=== PATIENT | female | born 1950 | race Caucasian/White ===

== ENCOUNTER → 2016-09-20 | Outpatient (CLI) | payer MEDICARE, MEDICAID ==
--- NOTE | 2016-09-20 11:05 | WOMENS IMAGING REPORT ---
EXAM DESCRIPTION: BONE DENSITY HIP/SPINE COMPLETED DATE/TIME: 09/20/2016 9:54 am REASON FOR STUDY: ROUTINE SCREENING; Z12.31 DISORDER OF BONE M85.80 Z12.31 ENCNTR SCREEN MAMMOGRAM FOR MALIGNANT NEOPLASM OF [place] M85.80 OTH DISRD OF BONE DENSITY AND STRUCTURE, UNSPECIFIED M81.0 A GE-RELATED OSTEOPOROSIS W/O CURRENT PATHOLOGICAL FRAC COMPARISON: None. TECHNIQUE: Dual-Energy X-ray Absorptiometry (DEXA) of the AP Spine and Hip. LIMITATIONS: None. FINDINGS: LUMBAR SPINE: The bone mineral density (BMD) measured from L1-L4 in the AP projection correlates with a T-score of 0.8, which is normal as defined by the World Health Organization. HIP: The bone mineral density (BMD) measured in the left femoral neck correlates with a T-score of -1.1, w hich is mild osteopenia. As defined by the World Health Organization. IMPRESSION: 1. LUMBAR SPINE: Normal 2. HIP: Mild osteopenia. COMMENT: The World Health Organization defines low BMD as follows: T-score: Normal: Greater than -1.0 Osteopenia: Between -1.0 and -2.5 Osteoporosis: Less than -2.5 without fractures Established osteoporosis: Less than -2.5 with fractures In general, you may wish to consider: Diagnosis Treatment Follow-up DEXA Normal BMD Prevention 2-3 years Osteopenia Prevention/Therapy 1-2 years Osteoporosis Therapy Yearly TECHNICAL DOCUMENTATION: JOB ID: [id number] [employer]- All Rights Reserved
--- NOTE | 2016-09-21 09:15 | WOMENS IMAGING REPORT ---
EXAM DESCRIPTION: 3D SCREENING MAMMO BILAT COMPLETED DATE/TIME: 09/20/2016 9:54 am REASON FOR STUDY: ROUTINE SCREENING; Z12.31 Z12.31 ENCNTR SCREEN MAMMOGRAM FOR MALIGNANT NEOPLASM O F [place] M85.80 OTH DISRD OF BONE DENSITY AND STRUCTURE, UNSPECIFIED M81.0 AGE-RELATED OSTEOPOROSIS W /O CURRENT PATHOLOGICAL FRAC COMPARISON: Multiple since 2013 TECHNIQUE: Standard craniocaudal and mediolateral oblique views of each breast recorded using digita l acquisition and breast tomosynthesis. LIMITATIONS: None. FINDINGS: Findings present which are benign by mammographic criteria. No suspicious masses, calcifi cations or architectural distortion. Pertinent benign findings: Benign calcifications far lateral the right breast previously biopsied, re lated to fibroadenoma. Read with the assistance of CAD. .[facility] - R2 Cenova Version 1.3 .[facility] Imaging - R2 Cenova Version 1.3 .[facility] - R2 Cenova Version 2.4 .[facility] [place] Cenova Version 2.4 .[facility] - R2 Specification Writer Version 9.2 Benign mammographic findings may include one or more of the following: Smooth masses, popcorn/rim/co arse calcifications, asymmetries, post-procedure changes, and lesions with long-standing stability. IMPRESSION: BENIGN MAMMOGRAPHIC FINDINGS. BIRADS 2 BREAST DENSITY: a. The breasts are almost entirely fatty. BIRAD: 2 BENIGN FINDING(S) RECOMMENDATION: RECOMMENDATION: ROUTINE SCREENING Please continue yearly bilateral screening tomosynthesis COMMENT: The patient has been notified of the results by letter per SA requirements. Additional no tification policies are in place for contacting patient with suspicious or incomplete findings. Quality ID #[id number]: The [employer] recommends an annual screening mammogram for women aged 40 years or over. This facility utilizes a reminder system to ensure that all patients receive reminder letters, and/or direct phone calls for appointments. This includes reminders for routine scr eening mammograms, diagnostic mammograms, or other Breast Imaging Interventions when appropriate. Th is patient will be placed in the appropriate reminder system. The [employer] (ACR) has developed recommendations for screening MRI of the breast s in certain patient populations, to be used in conjunction with mammography. Breast MRI surveillanc e may be appropriate for women with more than 20% lifetime risk of developing breast cancer as deter mined by genetic testing, significant family history of the disease, or history of mantle radiation f or Hodgkins Disease. ACR Practice Guidelines 2008. DBT Technology DBT is a type of tomographic mammography. With conventional mammography, overlapping breast tissue ma y make lesions difficult to detect, even with good compression. DBT uses an x-ray tube that rotates a round the breast, taking images at different angles. These images are then combined to create thin sl ices of the breast that the radiologist can view as a 3D reconstruction. The [employer] unit can perform full-field digital mammograms (2D imaging); or DBT (3D imaging); or both, in a combination mode that quickly performs both the mammogram and the tomosynthesis scan while the breast is still compressed. PQRS 6045F: Fluoroscopic imaging is not utilized for breast tomosynthesis. TECHNICAL DOCUMENTATION: FINDING NUMBER: (1) ASSESSMENT: (1) JOB ID: [id number] [employer]- All Rights Reserved
== END ==
LOC: WI 10:04
PROVIDERS: ATTEND Family Medicine
DX: Z12.31 Encounter for screening mammogram for malignant neoplasm of breast (principal); M85.80 Other specified disorders of bone density and structure, unspecified site; M81.0 Age-related osteoporosis without current pathological fracture
CPT/HCPCS: 77063; 77080; G0202; 77067

== ENCOUNTER → 2016-09-22 | Outpatient (CLI) | payer MEDICARE, MEDICAID ==
--- NOTE | 2016-09-23 08:43 | XCELERA REPORT ---
[address] [address] Lower Extremity Arterial Evaluation Name: MAKSIM STANLEY Age: 66 yrs Gender: Female : 1950 Patient Status: Outpatient Patient Location: Study Date: 09/22/2016 01:04 PM Procedure: A color flow and duplex scan of the lower extremity arteries was performed on the left with velocity and waveform anaylsis. Reason For Study: PVD Ordering Physician: NATHANIEL ROMAN Performed By: Jose Gonzalez Measurements and Calculations Right Left CHIEF OPERATIONS OFFICER PSV 127.3 123.4 cm/sec Prox PFA PSV -55.4 -117.9 cm/sec Dist SFA PSV -84.5 -106.2 cm/sec Dist Pop A PSV 87.9 101.2 cm/sec Dist ROBBIE PSV 87.7 108.1 cm/sec Dist GENERAL MANAGER [employer]D PSV 82.5 47.1 cm/sec Parag Pedis PSV 86.0 91.1 cm/sec Right Side Arterial Evaluation Normal velocity and triphasic waveforms noted from the Common Femoral artery to the infrageniculate vessels. Biphasic in the Deep Femoral artery. 0-19% stenosis at the Deep Femoral artery. Ankle Brachial index is 1.14. PPG's normal except for mild dampening in the first digit. Left Side Arterial Evaluation Normal velocity and triphasic waveforms noted from the Common Femoral artery to the Anterior Tibial artery. Biphasic in the Posterior Tibial artery. 0-19% stenosis at the Posterior Tibial artery. Ankle Brachial index is 1.17. PPG's normal except for mild dampening in the first and second digits. Interpretation Summary Mild hemodynamically significant lesions in the bilateral lower extremities, on duplex imaging, at rest. : NATHANIEL ROMAN > Zaid Fong
== END ==
LOC: SP 12:03 → MERGE 13:00
PROVIDERS: ATTEND Podiatrist Foot Surgery
DX: I73.9 Peripheral vascular disease, unspecified (principal)
CPT/HCPCS: 93925

== ENCOUNTER 2016-11-13 15:34 | Emergency (ER) | payer MEDICARE, MEDICAID ==
[2016-11-13] MEDS ORDERED: ASPIRIN 81 MG TABLET, CHEWABLE PO ONE (15:58)
--- NOTE | 2016-11-13 16:02 | ER Document Report ---
ED Medical Screen (RME) - General Chief Complaint: Chest Pain Stated Complaint: CHEST PAIN Time Seen by Provider: 11/13/16 15:58 Mode of Arrival: Ambulatory Information source: Patient TRAVEL OUTSIDE OF THE [place] IN LAST 30 DAYS: No - HPI Onset: Other - 3 DAYS Onset/Duration: Intermittent Quality of pain: Cramping Severity: Moderate Associated Symptoms: Chest pain, Nausea. denies: Chills, Cough (productive), Cough (nonproductive), Dizzy/lightheaded, Fever, Shortness of breath, Sweating Exacerbated by: Denies Relieved by: Denies Similar symptoms previously: No Recently seen / treated by doctor: No - Related Data Smoking: Non-smoker Frequency of alcohol use: None Drug Abuse: None Allergies/Adverse Reactions: sulfamethoxazole [From Septra DS] Allergy (Unknown, Verified 11/13/16 15:51) trimethoprim [From Septra DS] Allergy (Unknown, Verified 11/13/16 15:51) codeine [Codeine] Allergy (Verified 11/13/16 15:51) Anxiety latex [Latex] Allergy (Verified 11/13/16 15:51) Past Medical History - General Information source: Patient - Social History Cigarette use (# per day): No Chew tobacco use (# tins/day): No Frequency of alcohol use: None Drug Abuse: None Lives with: Spouse/Significant other Family history: None - Past Medical History Cardiac Medical History: Reports: Hx Hypercholesterolemia, Hx Hypertension, Hx Heart Murmur Denies: Hx Coronary Artery Disease, Hx Heart Attack Pulmonary Medical History: Reports: Hx Asthma, Hx Bronchitis, Hx COPD, Hx Pneumonia Denies: Hx Respiratory Failure, Hx Sleep Apnea, Hx Tuberculosis Neurological Medical History: Denies: Hx Cerebrovascular Accident, Hx Seizures Endocrine Medical History: Reports: Hx Diabetes Mellitus Type 2 Renal/ Medical History: Denies: Hx Peritoneal Dialysis Musculoskeltal Medical History: Reports Hx Arthritis Psychiatric Medical History: Reports: Hx Depression Past Surgical History: Reports: Hx Adenoidectomy, Hx Gynecologic Surgery - D&Cx2 , Hx Orthopedic Surgery - bilat carpal tunnel, Hx Tonsillectomy - Immunizations Hx Diphtheria, Pertussis, Tetanus Vaccination: Yes Review of Systems - Review of Systems Constitutional: No symptoms reported EENT: No symptoms reported Cardiovascular: See HPI Respiratory: No symptoms reported Gastrointestinal: See HPI Genitourinary: No symptoms reported Female Genitourinary: No symptoms reported Musculoskeletal: Leg swelling Skin: No symptoms reported Neurological/Psychological: No symptoms reported Physical Exam - Vital signs Vitals: Temp Pulse Resp BP Pulse Ox 98 F 76 16 138/65 H 95 11/13/16 15:42 11/13/16 15:42 11/13/16 15:42 11/13/16 15:42 11/13/16 15:42 Interpretation: Normal. No: Hypertensive, Tachycardic, Tachypneic - General General appearance: Appears well, Alert In distress: None - HEENT Head: Normocephalic Eyes: Normal Conjunctiva: Normal Ears: Normal Nasal: Normal Mouth/Lips: Normal Mucous membranes: Normal - Respiratory Respiratory status: No respiratory distress Breath sounds: Normal - Cardiovascular Rhythm: Regular Heart sounds: Normal auscultation Murmur: No - Abdominal Inspection: Morbidly Obese - Extremities General upper extremity: Normal inspection General lower extremity: Normal inspection - Neurological Neuro grossly intact: Yes Cognition: Normal Orientation: AAOx4 - Psychological Associated symptoms: Normal affect, Normal mood - Skin Skin Temperature: Warm Skin Moisture: Dry Skin Color: Normal Skin Turgor: Elastic Course - Vital Signs Vital signs: Temp Pulse Resp BP Pulse Ox 98 F 76 16 138/65 H 95 11/13/16 15:42 11/13/16 15:42 11/13/16 15:42 11/13/16 15:42 11/13/16 15:42
[2016-11-13 16:10] LABS: ABSOLUTE BASOPHILS # (AUTO) 0.2 10^3/uL (0.0-0.2); ABSOLUTE EOSINOPHILS # (AUTO) 0.8 10^3/uL (0.0-0.6); ABSOLUTE LYMPHOCYTES (AUTO) 1.7 10^3/uL (0.5-4.7); ABSOLUTE MONOCYTES (AUTO) 0.6 10^3/uL (0.1-1.4); ABSOLUTE NEUT (AUTO) 9.6 10^3/uL (1.7-8.2); BASOPHILS % (AUTO) 1.2 % (0-2); EOSINOPHILS % (AUTO) 6.1 % (0-6); HEMATOCRIT 39.5 % (36.0-47.0); HEMOGLOBIN 12.9 g/dL (12.0-15.5); HGB HCT DIFFERENCE -0.8; LYMPHOCYTES % (AUTO) 12.9 % (13-45); MEAN CORPUSCULAR HEMOGLOBIN 27.1 pg (27.0-33.4); MEAN CORPUSCULAR HGB CONC 32.7 g/dL (32.0-36.0); MEAN CORPUSCULAR VOLUME 83 fl (80-97); RED BLOOD COUNT 4.76 10^6/uL (3.72-5.28); RED CELL DISTRIBUTION WIDTH 16.9 % (11.5-14.0); SEGMENTED NEUTROPHILS % (AUTO) 74.8 % (42-78); WHITE BLOOD COUNT 12.8 10^3/uL (4.0-10.5)
[2016-11-13 16:23] LABS: ALANINE AMINOTRANSFERASE 37 U/L (9-52); ALBUMIN 4.2 g/dL (3.5-5.0); ALKALINE PHOSPHATASE 70 U/L (38-126); ANION GAP 9 (5-19); ASPARTATE AMINO TRANSFERASE 18 U/L (14-36); BILIRUBIN,DIRECT 0.3 mg/dL (0.0-0.4); BILIRUBIN,TOTAL 0.8 mg/dL (0.2-1.3); BLOOD UREA NITROGEN 15 mg/dL (7-20); CALCIUM 9.7 mg/dL (8.4-10.2); CARBON DIOXIDE 31 mmol/L (22-30); CHLORIDE 100 mmol/L (98-107); CREATINE KINASE 159 U/L (30-135); CREATININE RESULT 0.93 mg/dL (0.52-1.25); GLUCOSE 126 mg/dL (75-110); POTASSIUM 5.1 mmol/L (3.6-5.0); SODIUM 140.4 mmol/L (137-145)
--- NOTE | 2016-11-13 16:26 | RADIOLOGY REPORT (SQ) ---
EXAM DESCRIPTION: CHEST SINGLE VIEW COMPLETED DATE/TIME: 11/13/2016 4:08 pm REASON FOR STUDY: CHEST PAIN COMPARISON: Two-view chest 04/28/2013, 10/01/2015 EXAM PARAMETERS: NUMBER OF VIEWS: One view. TECHNIQUE: Single frontal radiographic view of the chest acquired. RADIATION DOSE: NA LIMITATIONS: None. FINDINGS: LUNGS AND PLEURA: No opacities, masses or pneumothorax. No pleural effusion. MEDIASTINUM AND HILAR STRUCTURES: No masses. Contour normal. HEART AND VASCULAR STRUCTURES: Stable borderline cardiomegaly BONES: No acute findings. HARDWARE: None in the chest. OTHER: No other significant finding. IMPRESSION: No acute changes TECHNICAL DOCUMENTATION: JOB ID: [id number]
[2016-11-13 16:35] LABS: CREATINE KINASE MB 8.28 ng/mL (<4.55)
[2016-11-13 16:38] LABS: TROPONIN I < 0.012 ng/mL
--- NOTE | 2016-11-13 16:41 | ER Document Report ---
ED General - General Chief Complaint: Chest Pain Stated Complaint: CHEST PAIN Time Seen by Provider: 11/13/16 15:58 Mode of Arrival: Ambulatory Information source: Patient, Relative TRAVEL OUTSIDE OF THE [place] IN LAST 30 DAYS: No - HPI Notes: 66-year-old female presents emergency department complaining of chest discomfort. She reports she has had discomfort in the right center of her chest for approximately 6 days. Today she felt like it is shifted left slightly. She reports having increased shortness of breath when ambulatory. Her chest pain does not get worse when she is walking. She does have occasional episodes of nausea. She has no diaphoresis. She also denies any near syncopal type episodes. In addition to the chest discomfort, she reports she has discomfort in her legs. She has pain in her right dunham and discomfort in her left foot. She says this is been going on for a couple of months. She denies any swelling in her legs. She does not have a history of any blood clots. Patient does report that she she uses albuterol as well as Advair. She has not used any albuterol today. - Related Data Allergies/Adverse Reactions: sulfamethoxazole [From Septra DS] Allergy (Unknown, Verified 11/13/16 15:51) trimethoprim [From Septra DS] Allergy (Unknown, Verified 11/13/16 15:51) codeine [Codeine] Allergy (Verified 11/13/16 15:51) Anxiety latex [Latex] Allergy (Verified 11/13/16 15:51) Past Medical History - General Information source: Patient - Social History Smoking Status: Never Smoker Cigarette use (# per day): No Chew tobacco use (# tins/day): No Frequency of alcohol use: None Drug Abuse: None Lives with: Spouse/Significant other Family History: Reviewed & Not Pertinent, CAD - Past Medical History Cardiac Medical History: Reports: Hx Hypercholesterolemia, Hx Hypertension, Hx Heart Murmur Denies: Hx Coronary Artery Disease, Hx Heart Attack Pulmonary Medical History: Reports: Hx Asthma, Hx Bronchitis, Hx COPD, Hx Pneumonia Denies: Hx Respiratory Failure, Hx Sleep Apnea, Hx Tuberculosis Neurological Medical History: Denies: Hx Cerebrovascular Accident, Hx Seizures Endocrine Medical History: Reports: Hx Diabetes Mellitus Type 2 Renal/ Medical History: Denies: Hx Peritoneal Dialysis Musculoskeltal Medical History: Reports Hx Arthritis Psychiatric Medical History: Reports: Hx Depression Past Surgical History: Reports: Hx Adenoidectomy, Hx Gynecologic Surgery - D&Cx2 , Hx Orthopedic Surgery - bilat carpal tunnel, Hx Tonsillectomy - Immunizations Hx Diphtheria, Pertussis, Tetanus Vaccination: Yes Hx Pneumococcal Vaccination: 12/26/14 Review of Systems - Review of Systems Notes: REVIEW OF SYSTEMS: CONSTITUTIONAL : Denies fever, chills, or sweats. Denies recent illness. EENT: Denies eye, ear, throat, or mouth pain or symptoms. Denies nasal or sinus congestion or discharge. Denies throat, tongue, or mouth swelling or difficulty swallowing. CARDIOVASCULAR: Positive for chest pain. See HPI. Denies palpitations or racing or irregular heart beat. Denies ankle edema. RESPIRATORY: Patient with increased dyspnea on exertion, shortness of breath. See HPI. GASTROINTESTINAL: Denies abdominal pain or distention. Denies nausea, vomiting , or diarrhea. Denies blood in vomitus, stools, or per rectum. Denies black, tarry stools. Denies constipation. GENITOURINARY: Denies difficulty urinating, painful urination, burning, frequency, blood in urine, or discharge. MUSCULOSKELETAL: Patient denies swelling. She does report myalgias and arthralgias. See HPI SKIN: Denies rash, lesions or sores. HEMATOLOGIC : Since family member reports she bleeds fairly freely if she cuts herself. Patient takes an aspirin a day. LYMPHATIC: Denies swollen, enlarged glands. NEUROLOGICAL: Denies confusion or altered mental status. Denies passing out or loss of consciousness. Denies dizziness or lightheadedness. Denies headache. Denies weakness or paralysis or loss of use of either side. Denies problems with gait or speech. Denies sensory loss, numbness, or tingling. Denies seizures. PSYCHIATRIC: Denies anxiety or stress. Denies depression, suicidal ideation, or homicidal ideation. ALL OTHER SYSTEMS REVIEWED AND NEGATIVE. PHYSICAL EXAMINATION: GENERAL: Alert, pleasant, communicative. Moderately large body habitus. No acute distress. HEAD: Atraumatic, normocephalic. ENT: Nares patent, oropharynx clear without exudates. Moist mucous membranes. NECK: Normal range of motion, supple without lymphadenopathy LUNGS: Mild expiratory wheeze noted bilaterally. No respiratory distress. HEART: Regular rate and rhythm without murmurs. ABDOMEN: Soft, nontender, nondistended abdomen. No guarding, no rebound. No masses appreciated. Musculoskeletal: Normal range of motion, no pitting or edema. No cyanosis. Easily palpated pulses in both feet. NEUROLOGICAL: Cranial nerves grossly intact. Normal speech, normal gait. Normal sensory, motor exams PSYCH: Normal mood, normal affect. SKIN: Warm, Dry, no rashes or lesions noted. Physical Exam - Vital signs Vitals: Temp Pulse Resp BP Pulse Ox 98 F 76 16 138/65 H 95 11/13/16 15:42 11/13/16 15:42 11/13/16 15:42 11/13/16 15:42 11/13/16 15:42 Course - Re-evaluation Re-evalutation: 11/13/16 16:48 Pleasant 66-year-old female with multiple complaints. The primary reason for the visit today is the right-sided chest discomfort that she has been having with increased dyspnea on exertion. Her EKG does not show any acute changes. At 1538 she had a sinus rhythm at a rate of 81 with normal intervals. She has a small Q-wave in lead III which been present before. No ischemic changes. Initial blood tests look reasonable, including a negative troponin. Chest x- ray does not show any acute changes. I have added a TSH due to the patient being on thyroid replacement. On exam, the patient has mild bilateral wheezing. I suspect this may play a role in her mild dyspnea on exertion. We will treat her with albuterol via MDI with spacer. The patient wanted to avoid a nebulizer treatment, which I think is reasonable to avoid. Reassessment pending after MDI albuterol. 11/13/16 18:22 Patient appears to be improved following albuterol. Her wheezing has significantly decreased and her delayed expirations are improved. She is now sitting upright in a chair and appears well. Her blood tests overall appear reasonable. I discussed the results with her. I have asked her to follow-up with her primary physician on Tuesday or Tuesday. She agrees with this plan. - Vital Signs Vital signs: Temp Pulse Resp BP Pulse Ox 98 F 76 16 138/65 H 95 11/13/16 15:42 11/13/16 15:42 11/13/16 15:42 11/13/16 15:42 11/13/16 15:42 - Laboratory Result Diagrams: 11/13/16 16:00 11/13/16 16:00 Laboratory results interpreted by me: 11/13/16 11/13/16 11/13/16 16:00 16:00 16:00 WBC 12.8 H RDW 16.9 H Lymphocytes % 12.9 L Eosinophils % 6.1 H Absolute Neutrophils 9.6 H Absolute Eosinophils 0.8 H Potassium 5.1 H Carbon Dioxide 31 H Glucose 126 H Creatine Kinase 159 H CK-MB (CK-2) 8.28 H Discharge - Discharge Clinical Impression: COPD (chronic obstructive pulmonary disease) Qualifiers: COPD type: unspecified COPD Qualified Code(s): J44.9 - Chronic obstructive pulmonary disease, unspecified Chest pain Qualifiers: Ischemic chest pain type: unspecified angina pectoris type Condition: Good Disposition: HOME, SELF-CARE Instructions: Chest Pain of Unclear Cause ([facility]) Additional Instructions: Asthma You have been diagnosed as having asthma. This is a condition where there is episodic tightness in the bronchial tubes. Allergies, infections, and polluted or cold air may be contributing factors. Emergency treatment of a severe asthma attack may include adrenaline shots , or bronchodilator aerosol. You may feel lightheaded, have a decreased exercise tolerance and a rapid pulse for an hour or two. Rest and get plenty of fluids. Home treatment of asthma requires bronchodilator drugs. These can be administered by injection, inhalation, or by mouth. Antibiotics and corticosteroids may be required for some patients. You should avoid chemical fumes, dusts, pollens, and exercising in very cold or dry air. If you smoke, stop!! If you develop a fever, increased wheezing, chest pain, or severe shortness of breath, you should contact the doctor immediately You may use the albuterol as needed, with the spacer, as we discussed. Return to the emergency department if you have worsening chest pain or if you have weakness or if you have other urgent concerns. See your regular doctor on Tuesday or Tuesday for reevaluation and ongoing care. Referrals: GIAN BENITEZ MD [NO LOCAL MD] - Follow up in 3-5 days
[2016-11-13] MEDS ORDERED: ALBUTEROL SULFATE HFA (90 MCG/PUFF) 8 GM MDI (1 MDI/ER DISP) IH ONE (16:50)
[2016-11-13 19:35] VITALS: BP 135/73
--- NOTE | 2016-11-14 07:50 | EKG REPORT ---
SEVERITY:- BORDERLINE ECG - SINUS RHYTHM BORDERLINE R WAVE PROGRESSION, ANTERIOR LEADS BORDERLINE T ABNORMALITIES, ANTERIOR LEADS : Confirmed by: Rick Hill MD 14-Nov-2016 07:50:32
== END 2016-11-13 19:33 | disposition home or self-care (01) ==
LOC: ER 15:34
DX: J44.9 Chronic obstructive pulmonary disease, unspecified (principal); R07.89 Other chest pain
CPT/HCPCS: 93005; 99285; 36415; 82553; 82550; 84443; 85025; 80053; 84484; 71010; 93010; A9270; J3490

== ENCOUNTER → 2017-11-01 | Outpatient (CLI) | payer MEDICARE, MEDICAID ==
--- NOTE | 2017-11-01 11:16 | WOMENS IMAGING REPORT ---
EXAM DESCRIPTION: 3D SCREENING MAMMO BILAT COMPLETED DATE/TIME: 11/01/2017 9:20 am REASON FOR STUDY: ROUTINE BILATERAL SCREENING;Z12.31 Z12.31 ENCNTR SCREEN MAMMOGRAM FOR MALIGNANT N EOPLASM OF [place] COMPARISON: [id number] TECHNIQUE: Standard craniocaudal and mediolateral oblique views of each breast recorded using digita l acquisition and breast tomosynthesis. LIMITATIONS: None. FINDINGS: Findings present which are benign by mammographic criteria. No suspicious masses, calcifi cations or architectural distortion. Pertinent benign findings: Calcifications right. Read with the assistance of CAD. .[facility] - R2 Cenova Version 1.3 .[facility] Imaging - R2 Cenova Version 1.3 .[facility] - R2 Cenova Version 2.4 .[facility] [place] Cenova Version 2.4 .[facility] - R2 [employer] Associate Version 9.2 Benign mammographic findings may include one or more of the following: Smooth masses, popcorn/rim/co arse calcifications, asymmetries, post-procedure changes, and lesions with long-standing stability. IMPRESSION: BENIGN MAMMOGRAPHIC FINDINGS. BIRADS 2 BREAST DENSITY: b. There are scattered areas of fibroglandular density. BIRAD: 2 BENIGN FINDING(S) RECOMMENDATION: RECOMMENDATION: ROUTINE SCREENING COMMENT: The patient has been notified of the results by letter per SA requirements. Additional no tification policies are in place for contacting patient with suspicious or incomplete findings. Quality ID #[id number]: [employer] recommends an annual screening mammogram for women aged 40 years or over. This facility utilizes a reminder system to ensure that all patients receive reminder letters, and/or direct phone calls for appointments. This includes reminders for routine scr eening mammograms, diagnostic mammograms, or other Breast Imaging Interventions when appropriate. Th is patient will be placed in the appropriate reminder system. The [employer] (ACR) has developed recommendations for screening MRI of the breast s in certain patient populations, to be used in conjunction with mammography. Breast MRI surveillanc e may be appropriate for women with more than 20% lifetime risk of developing breast cancer as deter mined by genetic testing, significant family history of the disease, or history of mantle radiation f or Hodgkins Disease. ACR Practice Guidelines 2008. DBT Technology DBT is a type of tomographic mammography. With conventional mammography, overlapping breast tissue ma y make lesions difficult to detect, even with good compression. DBT uses an x-ray tube that rotates a round the breast, taking images at different angles. These images are then combined to create thin sl ices of the breast that the radiologist can view as a 3D reconstruction. The [employer] unit can perform full-field digital mammograms (2D imaging); or DBT (3D imaging); or both, in a combination mode that quickly performs both the mammogram and the tomosynthesis scan while the breast is still compressed. PQRS 6045F: Fluoroscopic imaging is not utilized for breast tomosynthesis. TECHNICAL DOCUMENTATION: FINDING NUMBER: (1) ASSESSMENT: (1) JOB ID: [id number] [employer]- All Rights Reserved Reading location - IP/workstation name: [email or web address]
== END ==
LOC: WI 08:54
PROVIDERS: ATTEND Family Medicine
DX: Z12.31 Encounter for screening mammogram for malignant neoplasm of breast (principal)
CPT/HCPCS: 77063; 77067

== ENCOUNTER 2018-03-06 14:44 | Emergency (ER) | payer MEDICARE, MEDICAID ==
[2018-03-06] MEDS ORDERED: NORMAL SALINE 1000 ML 1,000 ML IV ONE (15:20)
--- NOTE | 2018-03-06 15:24 | ER Document Report ---
ED Medical Screen (RME) - General Chief Complaint: Abdominal Pain Stated Complaint: ABDOMINAL PAIN Time Seen by Provider: 03/06/18 15:05 TRAVEL OUTSIDE OF THE [place] IN LAST 30 DAYS: No - HPI Notes: 03/06/18 15:24 Lower abdominal pains consistent with diverticulitis in the past recently finished antibiotics for UTI - Related Data Allergies/Adverse Reactions: sulfamethoxazole [From Septra DS] Allergy (Unknown, Verified 03/06/18 14:44) trimethoprim [From Septra DS] Allergy (Unknown, Verified 03/06/18 14:44) codeine [Codeine] Allergy (Verified 03/06/18 14:44) Anxiety latex [Latex] Allergy (Verified 03/06/18 14:44) Past Medical History - Social History Family history: None - Past Medical History Cardiac Medical History: Reports: Hx Hypercholesterolemia, Hx Hypertension, Hx Heart Murmur Denies: Hx Coronary Artery Disease, Hx Heart Attack Pulmonary Medical History: Reports: Hx Asthma, Hx Bronchitis, Hx COPD, Hx Pneumonia Denies: Hx Respiratory Failure, Hx Sleep Apnea, Hx Tuberculosis Neurological Medical History: Denies: Hx Cerebrovascular Accident, Hx Seizures Endocrine Medical History: Reports: Hx Diabetes Mellitus Type 2 Renal/ Medical History: Denies: Hx Peritoneal Dialysis GI Medical History: Denies: Hx Pancreatitis Musculoskeltal Medical History: Reports Hx Arthritis Psychiatric Medical History: Reports: Hx Depression Past Surgical History: Reports: Hx Adenoidectomy, Hx Gynecologic Surgery - D&Cx2 , Hx Orthopedic Surgery - bilat carpal tunnel, Hx Tonsillectomy - Immunizations Hx Diphtheria, Pertussis, Tetanus Vaccination: Yes Review of Systems - Review of Systems Gastrointestinal: Abdominal pain Physical Exam - Vital signs Vitals: Temp Pulse Resp BP Pulse Ox 98.4 F 77 18 153/68 H 97 03/06/18 14:47 03/06/18 14:47 03/06/18 14:47 03/06/18 14:47 03/06/18 14:47 - Respiratory Respiratory status: No respiratory distress Chest status: Nontender Breath sounds: Normal Chest palpation: Normal - Cardiovascular Rhythm: Regular Heart sounds: Normal auscultation Course - Vital Signs Vital signs: Temp Pulse Resp BP Pulse Ox 98.4 F 77 18 153/68 H 97 03/06/18 14:47 03/06/18 14:47 03/06/18 14:47 03/06/18 14:47 03/06/18 14:47 Doctor's Discharge - Discharge Referrals: GIAN BENITEZ MD [Primary Care Provider] - Follow up as needed
[2018-03-06 16:09] LABS: ABSOLUTE BASOPHILS # (AUTO) 0.1 10^3/uL (0.0-0.2); ABSOLUTE EOSINOPHILS # (AUTO) 0.7 10^3/uL (0.0-0.6); ABSOLUTE LYMPHOCYTES (AUTO) 1.5 10^3/uL (0.5-4.7); ABSOLUTE MONOCYTES (AUTO) 0.9 10^3/uL (0.1-1.4); ABSOLUTE NEUT (AUTO) 9.8 10^3/uL (1.7-8.2); BASOPHILS % (AUTO) 0.7 % (0-2); EOSINOPHILS % (AUTO) 5.1 % (0-6); HEMATOCRIT 40.3 % (36.0-47.0); HEMOGLOBIN 13.2 g/dL (12.0-15.5); LYMPHOCYTES % (AUTO) 11.6 % (13-45); MEAN CORPUSCULAR HEMOGLOBIN 27.6 pg (27.0-33.4); MEAN CORPUSCULAR HGB CONC 32.8 g/dL (32.0-36.0); MEAN CORPUSCULAR VOLUME 84 fl (80-97); MONOCYTES % (AUTO) 6.9 % (3-13); PLATELET COUNT 224 10^3/uL (150-450); RED BLOOD COUNT 4.78 10^6/uL (3.72-5.28); RED CELL DISTRIBUTION WIDTH 15.9 % (11.5-14.0); SEGMENTED NEUTROPHILS % (AUTO) 75.7 % (42-78); TOTAL CELLS COUNTED % (AUTO) 100 %; WHITE BLOOD COUNT 12.9 10^3/uL (4.0-10.5)
[2018-03-06 16:12] LABS: APPEARANCE,URINE CLEAR; BILIRUBIN,URINE NEGATIVE (NEGATIVE); COLOR,URINE YELLOW; GLUCOSE, URINE NEGATIVE (NEGATIVE); KETONES,URINE NEGATIVE (NEGATIVE); LEUKOCYTE ESTERASE,URINE TRACE (NEGATIVE); NITRITE,URINE NEGATIVE (NEGATIVE); PROTEIN,URINE NEGATIVE (NEGATIVE); URINE SPECIFIC GRAVITY 1.009; UROBILINOGEN,URINE NEGATIVE mg/dL (<2.0)
--- NOTE | 2018-03-06 16:15 | ER Document Report ---
ED General - General Mode of Arrival: Ambulatory Information source: Patient TRAVEL OUTSIDE OF THE [place] IN LAST 30 DAYS: No <NERISSA NICKERSON - Last Filed: 03/06/18 16:44> <JEFF CEBALLOS - Last Filed: 03/06/18 18:01> - General Chief Complaint: Abdominal Pain Stated Complaint: ABDOMINAL PAIN Time Seen by Provider: 03/06/18 15:05 Notes: Patient is a 57-year-old female with a history of diverticulitis presents emergency department complaining of lower abdominal pain onset 2 weeks ago worsening today. Patient states that 2 weeks ago she developed pressure in her lower abdomen and proceeded to present to the emergency department. She states she was diagnosed with a UTI and subsequently prescribed Cipro. She states that Cipro resolved her symptoms although, after completing the medication her symptoms returned shortly after. She also complains of subjective fevers, nausea and frequent urination. Patient's PCP is Dr. Benitez. (NERISSA NICKERSON) - Related Data Allergies/Adverse Reactions: sulfamethoxazole [From Septra DS] Allergy (Unknown, Verified 03/06/18 14:44) trimethoprim [From Septra DS] Allergy (Unknown, Verified 03/06/18 14:44) codeine [Codeine] Allergy (Verified 03/06/18 14:44) Anxiety latex [Latex] Allergy (Verified 03/06/18 14:44) Past Medical History - General Information source: Patient - Social History Smoking Status: Former Smoker - quit 20 years ago as of 2018 Cigarette use (# per day): No Chew tobacco use (# tins/day): No Family History: CAD Patient has suicidal ideation: No Patient has homicidal ideation: No - Past Medical History Cardiac Medical History: Reports: Hx Hypercholesterolemia, Hx Hypertension, Hx Heart Murmur Pulmonary Medical History: Reports: Hx Asthma, Hx Bronchitis, Hx COPD, Hx Pneumonia Endocrine Medical History: Reports: Hx Diabetes Mellitus Type 2 Musculoskeletal Medical History: Reports Hx Arthritis Psychiatric Medical History: Reports: Hx Depression Past Surgical History: Reports: Hx Adenoidectomy, Hx Gynecologic Surgery - D&Cx2 , Hx Orthopedic Surgery - bilat carpal tunnel, Hx Tonsillectomy - Immunizations Hx Diphtheria, Pertussis, Tetanus Vaccination: Yes Hx Pneumococcal Vaccination: 12/26/14 <NERISSA NICKERSON - Last Filed: 03/06/18 16:44> Review of Systems - Review of Systems Constitutional: See HPI, Fever - subjective EENT: No symptoms reported Cardiovascular: No symptoms reported Respiratory: No symptoms reported Gastrointestinal: See HPI, Abdominal pain, Nausea Genitourinary: See HPI, Frequency Female Genitourinary: No symptoms reported Musculoskeletal: No symptoms reported Skin: No symptoms reported Hematologic/Lymphatic: No symptoms reported Neurological/Psychological: No symptoms reported -: Yes All other systems reviewed and negative <LIYAJACKELYNSONIA - Last Filed: 03/06/18 16:44> Physical Exam <LIYA,TAMSONIA - Last Filed: 03/06/18 16:44> <JEFF CEBALLOS - Last Filed: 03/06/18 18:01> - Vital signs Vitals: Temp Pulse Resp BP Pulse Ox 98.4 F 77 18 153/68 H 97 03/06/18 14:47 03/06/18 14:47 03/06/18 14:47 03/06/18 14:47 03/06/18 14:47 - Notes Notes: GENERAL: Alert, interacts well. No acute distress. HEAD: Normocephalic, atraumatic. EYES: Pupils equal, round, and reactive to light. Extraocular movements intact. ENT: Oral mucosa moist, tongue midline. NECK: Full range of motion. Supple. Trachea midline. LUNGS: Clear to auscultation bilaterally, no wheezes, rales, or rhonchi. No respiratory distress. HEART: Regular rate and rhythm. No murmurs, gallops, or rubs. ABDOMEN: Soft, morbidly obese, tender to palpation across the lower abdomen, more so to the pelvic region. Non-distended. Bowel sounds present in all 4 quadrants. EXTREMITIES: Moves all 4 extremities spontaneously. NEUROLOGICAL: Alert and oriented x3. Normal speech. PSYCH: Normal affect, normal mood. SKIN: Warm, dry, normal turgor. No rashes or lesions noted. (LIYAJACKELYNSONIA) Course - Laboratory Result Diagrams: 03/06/18 15:46 03/06/18 15:46 <LIYAJACKELYNSONIA - Last Filed: 03/06/18 16:44> - Laboratory Result Diagrams: 03/06/18 15:46 03/06/18 15:46 - Diagnostic Test Radiology reviewed: Image reviewed, Reports reviewed - CT scan shows sigmoid diverticulitis without abscess or perforation. <JEFF CEBALLOS - Last Filed: 03/06/18 18:01> - Vital Signs Vital signs: Temp Pulse Resp BP Pulse Ox 98.4 F 77 18 153/68 H 97 03/06/18 14:47 03/06/18 14:47 03/06/18 14:47 03/06/18 14:47 03/06/18 14:47 - Laboratory Laboratory results interpreted by me: 03/06/18 03/06/18 03/06/18 15:46 15:46 15:48 WBC 12.9 H RDW 15.9 H Lymphocytes % 11.6 L Absolute Neutrophils 9.8 H Absolute Eosinophils 0.7 H Glucose 146 H Ur Leukocyte Esterase TRACE H Urine Ascorbic Acid 40 H Discharge <NERISSA NICKERSON - Last Filed: 03/06/18 16:44> <JEFF CEBALLOS - Last Filed: 03/06/18 18:01> - Discharge Clinical Impression: Diverticulitis of sigmoid colon Condition: Stable Disposition: HOME, SELF-CARE Additional Instructions: Diverticulitis: You have been diagnosed as having diverticulitis. This is an inflammation of a small pouch attached to the colon, called a diverticulum. Many of these small pouches can form on the colon as you get older. They are often caused by constipation. When inflamed or infected, symptoms arise -- usually abdominal pain, constipation or diarrhea, fever, and blood in the stool. Severe diverticulitis may require hospitalization. More mild cases are usually treated with antibiotics and clear liquid diet. As you improve, a diet low in residue (one which forms little stool) is prescribed. When you are better, you should eat a high-fiber diet. Stool softeners ( like Metamucil) are usually recommended. Call the doctor or go to the hospital if there is increasing pain, vomiting , high fever, large amounts of blood passed, or if bowel movements cease. Take the medications as prescribed. Stay on clear liquids for the next 1-2 days. Continue your regular pain management medications. Add Ibuprofen 800 mg every 8 hours for inflammation pain as needed. Follow-up with your doctor this week for recheck if not improving. RETURN TO THE EMERGENCY ROOM IF ANY NEW OR WORSENING SYMPTOMS. Prescriptions: Ciprofloxacin HCl [Cipro 750 mg Tablet] 750 mg PO BID #14 tablet Metronidazole [Flagyl 500 mg Tablet] 500 mg PO QID #28 tablet Referrals: GIAN BENITEZ MD [Primary Care Provider] - Follow up in 3-5 days Zane Attestation: 03/06/18 17:34 I personally performed the services described in the documentation, reviewed and edited the documentation which was dictated to the scribe in my presence, and it accurately records my words and actions. (JEFF CEBALLOS) Scribe Documentation - Scribe Written by Zane:: Zane Perdomo, 03/06/2018 16:20 acting as scribe for :: Clement <NERISSA NICKERSON - Last Filed: 03/06/18 16:44>
[2018-03-06 16:29] LABS: ALANINE AMINOTRANSFERASE 28 U/L (9-52); ALBUMIN 4.2 g/dL (3.5-5.0); ALKALINE PHOSPHATASE 68 U/L (38-126); ANION GAP 13 (5-19); ASPARTATE AMINO TRANSFERASE 24 U/L (14-36); BILIRUBIN,DIRECT 0.2 mg/dL (0.0-0.4); BILIRUBIN,TOTAL 0.9 mg/dL (0.2-1.3); BLOOD UREA NITROGEN 17 mg/dL (7-20); CALCIUM 9.8 mg/dL (8.4-10.2); CARBON DIOXIDE 27 mmol/L (22-30); CHLORIDE 101 mmol/L (98-107); GLUCOSE 146 mg/dL (75-110); LIPASE 89.2 U/L (23-300); POTASSIUM 4.9 mmol/L (3.6-5.0); SODIUM 141.3 mmol/L (137-145); TOTAL PROTEIN 6.9 g/dL (6.3-8.2)
--- NOTE | 2018-03-06 17:25 | RADIOLOGY REPORT (SQ) ---
EXAM DESCRIPTION: CT ABD/PELVIS WITH IV ONLY COMPLETED DATE/TIME: 03/06/2018 5:12 pm REASON FOR STUDY: llq pain hx of diverticular dz COMPARISON: 02/16/2016 TECHNIQUE: CT scan of the abdomen and pelvis performed using helical scanning technique with dynamic intravenous contrast injection. No oral contrast. Images reviewed with lung, soft tissue, and bone windows. Reconstructed coronal and sagittal MPR images reviewed. Delayed images for evaluation of the urinary system also acquired. All images stored on PACS. All CT scanners at this facility use dose modulation, iterative reconstruction, and/or weight based d osing when appropriate to reduce radiation dose to as low as reasonably achievable (ALARA). [facility]: Dose Right [facility]: CareDose [facility]: Dose Right [facility]: Teradose 4D [facility]: GuideWall CONTRAST TYPE AND DOSE: 100 cc Omnipaque 350- low osmolar. RENAL FUNCTION: GFR > 60. RADIATION DOSE: CT Rad equipment meets quality standard of care and radiation dose reduction techniq ues were employed. CTDIvol: 21.1 mGy. DLP: 2270 mGy-cm.. LIMITATIONS: Body habitus. FINDINGS: LOWER CHEST: Nothing acute. LIVER: Normal size. No masses. No dilated ducts. SPLEEN: Normal size. No focal lesions. PANCREAS: No masses. No significant calcifications. No adjacent inflammation or peripancreatic fluid collections. Pancreatic duct not dilated. GALLBLADDER: No identified stones by CT criteria. No inflammatory changes to suggest cholecystitis. ADRENAL GLANDS: Stable bilateral adrenal nodules. RIGHT KIDNEY AND URETER: No solid masses. No significant calcifications. No hydronephrosis or hyd roureter. LEFT KIDNEY AND URETER: No solid masses. No significant calcifications. No hydronephrosis or hydr oureter. AORTA AND VESSELS: No aneurysm. RETROPERITONEUM: No retroperitoneal adenopathy, hemorrhage or masses. BOWEL AND PERITONEAL CAVITY: Mesenteric inflammation segment of sigmoid colon containing diverticula. No free air or ascites. APPENDIX: Not visualized. PELVIS: Calcified uterine fibroid. No pelvic adenopathy. ABDOMINAL WALL: No masses. No hernias. BONES: Nothing acute. OTHER: No other significant finding. IMPRESSION: Sigmoid diverticulitis. TECHNICAL DOCUMENTATION: JOB ID: [id number] Quality ID # [id number]: Final reports with documentation of one or more dose reduction techniques (e.g., Au tomated exposure control, adjustment of the mA and/or kV according to patient size, use of iterative reconstruction technique) 2010 [employer]- All Rights Reserved Reading location - IP/workstation name: [email or web address]
[2018-03-06] MEDS ORDERED: METRONIDAZOLE 500 MG TABLET PO ONE (17:42)
[2018-03-06] MEDS ORDERED: CIPROFLOXACIN HCL 750 MG TABLET PO ONE (17:42)
[2018-03-06 18:06] VITALS: BP 147/98
== END 2018-03-06 18:06 | disposition home or self-care (01) ==
LOC: ER 14:44
DX: K57.92 Diverticulitis of intestine, part unspecified, without perforation or abscess without bleeding (principal); R10.9 Unspecified abdominal pain; R50.9 Fever, unspecified; R11.0 Nausea; R35.0 Frequency of micturition; E78.00 Pure hypercholesterolemia, unspecified; I10 Essential (primary) hypertension; E11.9 Type 2 diabetes mellitus without complications; Z88.6 Allergy status to analgesic agent; Z91.040 Latex allergy status
CPT/HCPCS: 99284; 96360; 96361; 36415; 83690; 85025; 80053; 81001; 74177; A9270 ×2; J7030; J3490

== ENCOUNTER → 2018-09-21 | Outpatient (CLI) | payer MEDICARE, MEDICAID ==
--- NOTE | 2018-09-21 13:07 | WOMENS IMAGING REPORT ---
EXAM DESCRIPTION: BONE DENSITY HIP/SPINE COMPLETED DATE/TIME: 09/21/2018 10:18 am REASON FOR STUDY: M81.0 AGE-RELATED OSTEOPOROSIS WITHOUT CURRENT PATHOLOGICAL FRACTURE M81.0 AGE-RE LATED OSTEOPOROSIS W/O CURRENT PATHOLOGICAL FRAC COMPARISON: 09/20/2016 TECHNIQUE: Dual-Energy X-ray Absorptiometry (DEXA) of the AP Spine and Hip. LIMITATIONS: None. FINDINGS: LUMBAR SPINE: The bone mineral density (BMD) measured from L1-L4 in the AP projection correlates with a T-score of 0.0, which is normal as defined by the World Health Organization. HIP: The bone mineral density (BMD) measured in the left hip correlates with a T-score of -0.2 in the femo ral neck, which is normal as defined by the World Health Organization. IMPRESSION: 1. LUMBAR SPINE: Normal 2. HIP: Normal COMMENT: The World Health Organization defines low BMD as follows: T-score: Normal: Greater than -1.0 Osteopenia: Between -1.0 and -2.5 Osteoporosis: Less than -2.5 without fractures Established osteoporosis: Less than -2.5 with fractures In general, you may wish to consider: Diagnosis Treatment Follow-up DEXA Normal BMD Prevention 2-3 years Osteopenia Prevention/Therapy 1-2 years Osteoporosis Therapy Yearly TECHNICAL DOCUMENTATION: JOB ID: [id number] [employer]- All Rights Reserved Reading location - IP/workstation name: [email or web address]
== END ==
LOC: WI 09:57
PROVIDERS: ATTEND Internal Medicine Hematology & Oncology
DX: M81.0 Age-related osteoporosis without current pathological fracture (principal)
CPT/HCPCS: 77080

== ENCOUNTER 2019-08-10 13:17 | Observation (INO) | payer MEDICAID, MEDICARE ==
--- NOTE | 2019-08-10 13:59 | ER Document Report ---
ED Medical Screen (RME) - General Chief Complaint: Chest Pain Stated Complaint: CHEST PAIN Time Seen by Provider: 08/10/19 13:54 Primary Care Provider: KHADRA CHOPRA MD [Primary Care Provider] - Follow up as needed Mode of Arrival: Ambulatory Information source: Patient Notes: 69-year-old female patient presents emergency department chief complaint of chest pain. Patient reports midsternal chest pain woke her up this morning from a sleep. She states that it felt like indigestion so she took Tums. Patient reports the Tums did not help her pain. She states the pain has been intermittent but has worsened through the day. She reports it radiates up into her throat area. She denies any nausea, diaphoresis or shortness of breath. Patient alert, oriented, no acute distress noted. Heart sounds S1-S2 present, normal rate, normal rhythm I have greeted and performed a rapid initial assessment of this patient. A comprehensive ED assessment and evaluation of the patient, analysis of test results and completion of the medical decision making process will be conducted by additional ED providers. I have specifically instructed the patient or family members with the patient to immediately return to any nursing staff should anything change in the patient's condition or with their chief complaint. TRAVEL OUTSIDE OF THE [place] IN LAST 30 DAYS: No - Related Data Allergies/Adverse Reactions: sulfamethoxazole [From Septra DS] Allergy (Unknown, Verified 07/24/18 09:41) trimethoprim [From Septra DS] Allergy (Unknown, Verified 07/24/18 09:41) codeine [Codeine] Allergy (Verified 07/24/18 09:41) Anxiety latex [Latex] Allergy (Verified 07/24/18 09:41) Past Medical History - Social History Family history: None - Past Medical History Cardiac Medical History: Reports: Hx Hypercholesterolemia, Hx Hypertension, Hx Heart Murmur Denies: Hx Coronary Artery Disease, Hx Heart Attack Pulmonary Medical History: Reports: Hx Asthma, Hx Bronchitis, Hx COPD, Hx Pneumonia Denies: Hx Respiratory Failure, Hx Sleep Apnea, Hx Tuberculosis Neurological Medical History: Denies: Hx Cerebrovascular Accident, Hx Seizures Endocrine Medical History: Reports: Hx Diabetes Mellitus Type 2 Renal/ Medical History: Denies: Hx Peritoneal Dialysis GI Medical History: Denies: Hx Pancreatitis Musculoskeltal Medical History: Reports Hx Arthritis, Denies Hx Systemic Lupus Erythematosus Psychiatric Medical History: Reports: Hx Depression Past Surgical History: Reports: Hx Adenoidectomy, Hx Gynecologic Surgery - D&Cx2, Hx Orthopedic Surgery - bilat carpal tunnel, Hx Tonsillectomy - Immunizations Hx Diphtheria, Pertussis, Tetanus Vaccination: Yes Physical Exam - Vital signs Vitals: Temp Pulse BP Pulse Ox 98.6 F 77 135/66 H 93 08/10/19 13:25 08/10/19 13:25 08/10/19 13:25 08/10/19 13:25 Course - Vital Signs Vital signs: Temp Pulse Resp BP Pulse Ox 98.6 F 77 135/66 H 93 08/10/19 13:25 08/10/19 13:25 08/10/19 13:25 08/10/19 13:25 Doctor's Discharge - Discharge Referrals: KHADRA CHOPRA MD [Primary Care Provider] - Follow up as needed
[2019-08-10] MEDS ORDERED: ASPIRIN 81 MG TABLET, CHEWABLE PO ONE (14:22)
--- NOTE | 2019-08-10 14:22 | ER Document Report ---
ED Cardiac - General Chief Complaint: Chest Pain Stated Complaint: CHEST PAIN Time Seen by Provider: 08/10/19 13:54 Mode of Arrival: Ambulatory Information source: Patient Notes: 69-year-old female past medical history significant for asthma, COPD, diabetes, hypertension, hyperlipidemia presents to the emergency room with chest pain that woke her up around 9 AM this morning. She describes it as midsternal pressure. Is intermittent. States she took Tums without relief. Takes 1 baby aspirin a day. Did not take any additional baby aspirin. Denies nausea, vomiting, diaphoresis, nothing makes it worse, nothing makes it better. Negative stress test 5 years ago. Does not see a insurance claim auditor. TRAVEL OUTSIDE OF THE [place] IN LAST 30 DAYS: No - Related Data Allergies/Adverse Reactions: sulfamethoxazole [From Septra DS] Allergy (Unknown, Verified 07/24/18 09:41) trimethoprim [From Septra DS] Allergy (Unknown, Verified 07/24/18 09:41) codeine [Codeine] Allergy (Verified 07/24/18 09:41) Anxiety latex [Latex] Allergy (Verified 07/24/18 09:41) Past Medical History - General Information source: Patient - Social History Smoking Status: Former Smoker Frequency of alcohol use: None Lives with: Family Family History: CAD, DM, Hyperlipidemia, Hypertension Patient has homicidal ideation: No - Past Medical History Cardiac Medical History: Reports: Hx Hypercholesterolemia, Hx Hypertension, Hx Heart Murmur Denies: Hx Coronary Artery Disease, Hx Heart Attack Pulmonary Medical History: Reports: Hx Asthma, Hx Bronchitis, Hx COPD, Hx Pneumonia Denies: Hx Respiratory Failure, Hx Sleep Apnea, Hx Tuberculosis Neurological Medical History: Denies: Hx Cerebrovascular Accident, Hx Seizures Endocrine Medical History: Reports: Hx Diabetes Mellitus Type 2 Renal/ Medical History: Denies: Hx Peritoneal Dialysis GI Medical History: Denies: Hx Pancreatitis Musculoskeletal Medical History: Reports Hx Arthritis, Denies Hx Systemic Lupus Erythematosus Psychiatric Medical History: Reports: Hx Depression Past Surgical History: Reports: Hx Adenoidectomy, Hx Gynecologic Surgery - D&Cx2, Hx Orthopedic Surgery - bilat carpal tunnel, Hx Tonsillectomy - Immunizations Hx Diphtheria, Pertussis, Tetanus Vaccination: Yes Hx Pneumococcal Vaccination: 12/26/14 Review of Systems - Review of Systems Constitutional: No symptoms reported EENT: No symptoms reported Cardiovascular: Chest pain Respiratory: No symptoms reported. denies: Cough, Short of breath, Wheezing Gastrointestinal: denies: Nausea, Vomiting Musculoskeletal: No symptoms reported Skin: No symptoms reported Neurological/Psychological: No symptoms reported -: Yes All other systems reviewed and negative Physical Exam - Vital signs Vitals: Temp Pulse BP Pulse Ox 98.6 F 77 135/66 H 93 08/10/19 13:25 08/10/19 13:25 08/10/19 13:25 08/10/19 13:25 - General General appearance: Appears well, Alert In distress: Mild - HEENT Head: Normocephalic, Atraumatic Eyes: Normal Pupils: PERRL - Respiratory Respiratory status: No respiratory distress Chest status: Nontender Breath sounds: Normal Chest palpation: Normal - Cardiovascular Rhythm: Regular Heart sounds: Normal auscultation Murmur: No - Back Back: Normal, Nontender. No: CVA tenderness - Neurological Neuro grossly intact: Yes Cognition: Normal Orientation: AAOx4 Kiarra Coma Scale Eye Opening: Spontaneous [place] Coma Scale Verbal: Oriented [place] Coma Scale Motor: Obeys Commands Kiarra Coma Scale Total: 15 Speech: Normal Motor strength normal: LUE, RUE, LLE, RLE Sensory: Normal - Skin Skin Temperature: Warm Skin Moisture: Dry Skin Color: Normal Course - Re-evaluation Re-evalutation: 08/10/19 14:26 Heart score = 5 per heart pathway scale 08/10/19 16:51 Patient is resting comfortably no acute distress at this time. Reviewed all test results with patient. Aware of need for admission. Patient is agreeable to admission. - Vital Signs Vital signs: Temp Pulse Resp BP Pulse Ox 98.8 F 79 16 121/46 L 98 08/10/19 19:49 08/10/19 19:49 08/10/19 19:49 08/10/19 19:49 08/10/19 18:01 - Laboratory Result Diagrams: 08/10/19 14:33 08/10/19 14:33 Laboratory results interpreted by me: 08/10/19 08/10/19 08/10/19 14:33 14:33 14:33 WBC 12.3 H RDW 16.0 H Eos % (Auto) 8.0 H Absolute Neuts (auto) 8.9 H Absolute Eos (auto) 1.0 H Potassium 5.1 H BUN 38 H Creatinine 1.92 H Est GFR ( Amer) 31 L Est GFR (MDRD) Non-Af 26 L Glucose 119 H Calcium 10.5 H AST 37 H Leukocyte Esterase Rfl TRACE H Urine Ascorbic Acid 40 H - Diagnostic Test Radiology reviewed: Reports reviewed - EKG Interpretation by Me Additional EKG results interpreted by me: 08/10/19 14:25 EKG interpreted by ER physician Dr. Vaughan 08/10/19 14:26 - Consults Dr Head Time consulted: 17:32 Reason for consultation: 08/10/19 17:32 Admission for chest pain, acute kidney injury Consulted provider: will come to ER Discharge - Discharge Clinical Impression: Acute kidney injury Chest pain Qualifiers: Chest pain type: other chest pain Qualified Code(s): R07.89 - Other chest pain Disposition: ADMITTED OBSERVATION Admitting Provider: Sonido (Hospitalist) Unit Admitted: Telemetry
--- NOTE | 2019-08-10 14:40 | RADIOLOGY REPORT (SQ) ---
EXAM DESCRIPTION: CHEST SINGLE VIEW IMAGES COMPLETED DATE/TIME: 08/10/2019 2:23 pm REASON FOR STUDY: chest pain COMPARISON: 11/13/2016 EXAM PARAMETERS: NUMBER OF VIEWS: One view. TECHNIQUE: Single frontal radiographic view of the chest acquired. RADIATION DOSE: NA LIMITATIONS: None. FINDINGS: LUNGS AND PLEURA: No opacities, masses or pneumothorax. No pleural effusion. MEDIASTINUM AND HILAR STRUCTURES: Stable in appearance with fullness along the right mediastinal bord er. HEART AND VASCULAR STRUCTURES: Heart normal in size. Normal vasculature. BONES: No acute findings. HARDWARE: None in the chest. OTHER: No other significant finding. IMPRESSION: No interval change in the chest. TECHNICAL DOCUMENTATION: JOB ID: [id number] 2010 [employer]- All Rights Reserved Reading location - IP/workstation name: [email or web address]
[2019-08-10 15:10] LABS: ABSOLUTE BASOPHILS # (AUTO) 0.1 10^3/uL (0.0-0.2); ABSOLUTE LYMPHOCYTES (AUTO) 1.6 10^3/uL (0.5-4.7); ABSOLUTE MONOCYTES (AUTO) 0.7 10^3/uL (0.1-1.4); ABSOLUTE NEUT (AUTO) 8.9 10^3/uL (1.7-8.2); HEMATOCRIT 37.4 % (36.0-47.0); HEMOGLOBIN 12.3 g/dL (12.0-15.5); LYMPHOCYTES % (AUTO) 13.1 % (13-45); MEAN CORPUSCULAR HEMOGLOBIN 27.8 pg (27.0-33.4); MEAN CORPUSCULAR HGB CONC 32.9 g/dL (32.0-36.0); MEAN CORPUSCULAR VOLUME 85 fl (80-97); MONOCYTES % (AUTO) 5.5 % (3-13); PLATELET COUNT 238 10^3/uL (150-450); RED BLOOD COUNT 4.43 10^6/uL (3.72-5.28); SEGMENTED NEUTROPHILS % (AUTO) 72.4 % (42-78); TOTAL CELLS COUNTED % (AUTO) 100 %; WHITE BLOOD COUNT 12.3 10^3/uL (4.0-10.5)
[2019-08-10 15:27] LABS: ALBUMIN 4.6 g/dL (3.5-5.0); ALKALINE PHOSPHATASE 41 U/L (38-126); ANION GAP 10 (5-19); ASPARTATE AMINO TRANSFERASE 37 U/L (14-36); BILIRUBIN,DIRECT 0.1 mg/dL (0.0-0.4); BILIRUBIN,TOTAL 0.5 mg/dL (0.2-1.3); BLOOD UREA NITROGEN 38 mg/dL (7-20); CALCIUM 10.5 mg/dL (8.4-10.2); CARBON DIOXIDE 30 mmol/L (22-30); CHLORIDE 99 mmol/L (98-107); GLUCOSE 119 mg/dL (75-110); POTASSIUM 5.1 mmol/L (3.6-5.0); TOTAL PROTEIN 7.3 g/dL (6.3-8.2)
[2019-08-10] MEDS ORDERED: IPRATROPIUM/ALBUTEROL 0.5-2.5 MG/3 ML AMPUL NEB PRN (17:46)
[2019-08-10] MEDS ORDERED: OXYCODONE-ACETAMINOPHEN 5-325 MG TABLET PO PRN (17:46)
[2019-08-10] MEDS ORDERED: ACETAMINOPHEN 325 MG TABLET PO PRN (17:46)
[2019-08-10] MEDS ORDERED: TEMAZEPAM 7.5 MG CAPSULE PO PRN (17:46)
[2019-08-10] MEDS ORDERED: NORMAL SALINE 1000 ML 1,000 ML IV PRN (17:46)
[2019-08-10] MEDS ORDERED: ONDANSETRON 4 MG TAB.RAPDIS PO PRN (17:46)
[2019-08-10] MEDS ORDERED: DEXTROSE 50%-WATER 25 GM/50 ML DISP.SYRIN IV PRN ×2 (17:52)
[2019-08-10] MEDS ORDERED: DEXTROSE 40% GEL 15 GM TUBE PO PRN ×2 (17:52)
[2019-08-10] MEDS ORDERED: GLUCAGON,HUMAN RECOMB 1 MG INJ IM PRN (17:52)
--- NOTE | 2019-08-10 18:02 | PDOC H&P ---
History of Present Illness Admission Date/PCP: GIAN BENITEZ MD Patient complains of: Midsternal chest pain with no associated nausea vomiting since 9 AM this morning History of Present Illness: MAKSIM STANLEY is a 69 year old female Patient presents emergency room with complaints of chest pain which started around 9 AM this morning. She denies any prior episodes of chest pain. Chest pain is felt to be mid start all are intermittent. She thought it was reflux so she took some Tums with no relief. She denies any prior history of coronary artery disease or episodes of chest pain. There is no nausea vomiting diaphoresis dizziness or any other pertinent symptoms. She is currently chest pain-free at the time of my exam for text Past Medical History Cardiac Medical History: Reports: Hyperlipidema, Hypertension, Heart Murmur Denies: Coronary Artery Disease, Myocardial Infarction Pulmonary Medical History: Reports: Asthma, Bronchitis, Chronic Obstructive Pulmonary Disease (COPD), Pneumonia Denies: Respiratory Failure, Sleep Apnea, Tuberculosis Neurological Medical History: Denies: Seizures Endocrine Medical History: Reports: Diabetes Mellitus Type 2 Musculoskeltal Medical History: Reports: Arthritis Psychiatric Medical History: Reports: Depression Hematology: Reports: Anemia Denies: Hemophilia, Sickle Cell Disease Past Surgical History Past Surgical History: Reports: Adenoidectomy, Orthopedic Surgery - bilat carpal tunnel, Tonsillectomy Denies: Amputation Social History Information Source: Patient Lives with: Family Smoking Status: Former Smoker Hx Recreational Drug Use: No Hx Prescription Drug Abuse: No - Advance Directive Resuscitation Status: Full Code Family History Family History: CAD, DM, Hyperlipidemia, Hypertension Parental Family History Reviewed: No Children Family History Reviewed: No Sibling(s) Family History Reviewed.: Yes Medication/Allergy Home Medications: Oxycodone HCl/Acetaminophen [Percocet 10-325 mg Tablet] 1 each PO TID PRN 04/27/11 Venlafaxine HCl [Effexor 75 mg Tablet] 150 mg PO DAILY 12/11/11 Aspirin [Aspirin 325 mg Tablet] 325 mg PO DAILY 04/28/13 Insulin Glargine,Hum.rec.anlog [Lantus] 80 unit SQ BID 04/28/13 Cholecalciferol (Vitamin D3) [Vitamin D] 1 tab PO Q7D 12/01/13 Losartan Potassium 50 mg PO DAILY 12/01/13 Williams-3 Fatty Acids/Vitamin E [Williams-3 Fish Oil Softgel] 1 each PO BID 12/01/13 Sitagliptin Phos/Metformin HCl [Janumet Xr 50-1,000 mg Tablet] 1 tab PO BID 12/01/13 Ibuprofen [Motrin 600 mg Tablet] 600 mg PO Q8HP PRN #90 tablet 03/24/15 Atorvastatin Calcium [Lipitor 20 mg Tablet] 10 mg PO QHS 10/31/15 Ferrous Fumarate [Ferretts] 1 tab PO DAILY 10/31/15 Vit C/E/Zn/Coppr/Lutein/Zeaxan [Preservision Areds 2 Softgel] 2 cap PO DAILY 10/31/15 Ciprofloxacin HCl [Cipro 750 mg Tablet] 750 mg PO BID #14 tablet 03/06/18 Metronidazole [Flagyl 500 mg Tablet] 500 mg PO QID #28 tablet 03/06/18 Amox Tr/Potassium Clavulanate [Augmentin 875-125 Tablet] 1 tab PO BID 10 Days #20 tablet 07/24/18 Allergies/Adverse Reactions: sulfamethoxazole [From Septra DS] Allergy (Unknown, Verified 07/24/18 09:41) trimethoprim [From Septra DS] Allergy (Unknown, Verified 07/24/18 09:41) codeine [Codeine] Allergy (Verified 07/24/18 09:41) Anxiety latex [Latex] Allergy (Verified 07/24/18 09:41) Review of Systems All systems: reviewed and no additional remarkable complaints except as stated Cardiovascular: PRESENT: chest pain. ABSENT: dyspnea on exertion, palpitations Physical Exam Vital Signs: Temp Pulse Resp BP Pulse Ox 98.6 F 77 16 114/57 L 91 L 08/10/19 13:53 08/10/19 13:25 08/10/19 16:01 08/10/19 16:01 08/10/19 16:01 Intake & Output 08/09/19 08/10/19 08/11/19 06:59 06:59 06:59 Weight 131.6 kg General appearance: PRESENT: no acute distress, morbidly obese, well-developed, well-nourished Head exam: PRESENT: atraumatic, normocephalic Eye exam: PRESENT: conjunctiva pink, EOMI, PERRLA. ABSENT: scleral icterus Mouth exam: PRESENT: tongue midline Neck exam: ABSENT: carotid bruit, JVD, lymphadenopathy, thyromegaly Respiratory exam: PRESENT: clear to auscultation tavo. ABSENT: rales, rhonchi, wheezes Cardiovascular exam: PRESENT: RRR, +S1, +S2. ABSENT: diastolic murmur, rubs, systolic murmur Pulses: PRESENT: normal dorsalis pedis pul Vascular exam: PRESENT: normal capillary refill GI/Abdominal exam: PRESENT: normal bowel sounds, soft. ABSENT: distended, guarding, mass, organolmegaly, rebound, tenderness Rectal exam: PRESENT: deferred Extremities exam: PRESENT: full ROM. ABSENT: calf tenderness, clubbing, pedal edema Neurological exam: PRESENT: alert, awake, oriented to person, oriented to place, oriented to time, oriented to situation, CN II-XII grossly intact. ABSENT: motor sensory deficit Psychiatric exam: PRESENT: appropriate affect, normal mood. ABSENT: homicidal ideation, suicidal ideation Skin exam: PRESENT: dry, intact, warm. ABSENT: cyanosis, rash Results Laboratory Results: 08/10/19 14:33 08/10/19 14:33 08/10/19 08/10/19 14:33 14:33 WBC 12.3 H RBC 4.43 Hgb 12.3 Hct 37.4 MCV 85 MCH 27.8 MCHC 32.9 RDW 16.0 H Plt Count 238 Seg Neutrophils % 72.4 Sodium 138.7 Potassium 5.1 H Chloride 99 Carbon Dioxide 30 Anion Gap 10 BUN 38 H Creatinine 1.92 H Est GFR ( Amer) 31 L Glucose 119 H Calcium 10.5 H Total Bilirubin 0.5 AST 37 H Alkaline Phosphatase 41 Total Protein 7.3 Albumin 4.6 08/10/19 14:33 Troponin I < 0.012 EKG Comments: Sinus rhythm Impressions: Chest X-Ray 08/10/19 13:58 IMPRESSION: No interval change in the chest. Assessment and Plan - Diagnosis (1) Morbid obesity with BMI of 45.0-49.9, adult Is this a current diagnosis for this admission?: Yes Plan: Portion control (2) Type 2 diabetes mellitus Qualifiers: Diabetes mellitus exterminator insulin use: with exterminator use Chronic kidney disease stage: stage 3 (moderate) Is this a current diagnosis for this admission?: Yes Plan: Insulin and she was placed on sliding scale while she is in hospital (3) Acute kidney injury Is this a current diagnosis for this admission?: Yes Plan: Current creatinine is 1.92. Last creatinine before now was 0.8 but this was back in 2018. She will be gently hydrated and we will recheck kidney function in a.m. Attenuate no acute interventions are warranted (4) Chest pain Qualifiers: Chest pain type: other chest pain Qualified Code(s): R07.89 - Other chest pain; R07.8 - Other chest pain Is this a current diagnosis for this admission?: Yes Plan: Chest pain is pretty typical. She is currently chest pain-free. EKG shows no acute changes. Troponin is negative x1 and more have been ordered. Patient will be kept overnight. We will reevaluate in a.m. If she remains stable she likely can be discharged for outpatient follow-up - Plan Summary Summary: She has a slight leukocytosis although I see no clear evidence of an infection. Urinalysis will be checked. Will recheck CBC in a.m. - Time Time Spent with patient: 25-34 minutes Anticipated discharge: Home Within: within 24 hours
[2019-08-10 19:13] LABS: APPEARANCE,URINE CLEAR; BILIRUBIN,URINE NEGATIVE (NEGATIVE); COLOR,URINE YELLOW; GLUCOSE, URINE NEGATIVE (NEGATIVE); KETONES,URINE NEGATIVE (NEGATIVE); PROTEIN,URINE NEGATIVE (NEGATIVE); UROBILINOGEN,URINE NEGATIVE mg/dL (<2.0)
[2019-08-10] MEDS: GABAPENTIN 400 MG CAPSULE PO SCH (21:53)
[2019-08-10] MEDS: INSULIN GLARGINE,HUM.REC.ANLOG 1,000 UNIT/10 ML VIAL SUBCUT SCH (21:57)
[2019-08-10] MEDS: INSULIN REG, HUMAN 100 UNIT/ML 3 ML VIAL (PYX) SUBCUT SCH (21:59)
[2019-08-10] MEDS ORDERED: ATORVASTATIN CALCIUM 20 MG TABLET PO SCH (22:00)
[2019-08-10] MEDS ORDERED: ASCORBIC ACID 500 MG TABLET PO SCH (22:00)
[2019-08-10] MEDS ORDERED: FENOFIBRATE NANOCRYSTALLIZED 145 MG TABLET PO SCH (22:00)
[2019-08-11] MEDS ORDERED: PANTOPRAZOLE SODIUM 20 MG TABLET.DR PO SCH (06:00)
[2019-08-11 06:55] LABS: HEMATOCRIT 35.3 % (36.0-47.0); HEMOGLOBIN 11.7 g/dL (12.0-15.5); MEAN CORPUSCULAR HEMOGLOBIN 28.3 pg (27.0-33.4); MEAN CORPUSCULAR HGB CONC 33.3 g/dL (32.0-36.0); MEAN CORPUSCULAR VOLUME 85 fl (80-97); PLATELET COUNT 203 10^3/uL (150-450); RED BLOOD COUNT 4.15 10^6/uL (3.72-5.28); WHITE BLOOD COUNT 8.9 10^3/uL (4.0-10.5)
[2019-08-11 07:07] LABS: ANION GAP 8 (5-19); BLOOD UREA NITROGEN 36 mg/dL (7-20); CALCIUM 9.5 mg/dL (8.4-10.2); CARBON DIOXIDE 29 mmol/L (22-30); CHLORIDE 100 mmol/L (98-107); GLUCOSE 138 mg/dL (75-110); POTASSIUM 4.7 mmol/L (3.6-5.0)
[2019-08-11] MEDS: INSULIN REG, HUMAN 100 UNIT/ML 3 ML VIAL (PYX) SUBCUT SCH ×2 (07:45→11:39)
[2019-08-11] MEDS: GABAPENTIN 400 MG CAPSULE PO SCH (08:05)
[2019-08-11] MEDS: INSULIN GLARGINE,HUM.REC.ANLOG 1,000 UNIT/10 ML VIAL SUBCUT SCH (09:24)
[2019-08-11] MEDS ORDERED: ENOXAPARIN SODIUM INJ 40 MG/0.4 ML DISP.SYRIN SUBCUT SCH (10:00)
[2019-08-11] MEDS ORDERED: DOCUSATE SODIUM 100 MG CAPSULE PO SCH (10:00)
[2019-08-11] MEDS ORDERED: IRON POLYSACCHARIDES COMPLEX 150 MG CAPSULE PO SCH (10:00)
--- NOTE | 2019-08-11 11:13 | PDOC DISCHARGE SUMMARY ---
Impression - Admit/DC Date/PCP Admission Date/Primary Care Provider: 08/10/19 18:04 GIAN BENITEZ MD Discharge Date: 08/11/19 - Discharge Diagnosis (1) Morbid obesity with BMI of 45.0-49.9, adult Is this a current diagnosis for this admission?: Yes (2) Type 2 diabetes mellitus Is this a current diagnosis for this admission?: Yes (3) Acute kidney injury Is this a current diagnosis for this admission?: Yes (4) Chest pain Is this a current diagnosis for this admission?: Yes - Assessment Summary: She has a slight leukocytosis although I see no clear evidence of an infection. Urinalysis will be checked. Will recheck CBC in a.m. - Additional Information Resuscitation Status: Full Code Discharge Diet: Diabetic Discharge Activity: Activity As Tolerated Referrals: GIAN BENITEZ MD [Primary Care Provider] - Home Medications: Losartan Potassium 50 mg PO DAILY 12/01/13 Sitagliptin Phos/Metformin HCl [Janumet Xr 50-1,000 mg Tablet] 1 tab PO BID 12/01/13 Atorvastatin Calcium [Lipitor 20 mg Tablet] 10 mg PO QHS 10/31/15 Vit C/E/Zn/Coppr/Lutein/Zeaxan [Preservision Areds 2 Softgel] 2 cap PO QHS 10/31/15 Alendronate Sodium 70 mg PO WE@1000 08/10/19 Aripiprazole 5 mg PO DAILY 08/10/19 Ascorbic Acid [Vitamin C 500 mg Tablet] 1,000 mg PO QHS 08/10/19 Aspirin [Ecotrin 81 mg EC Tablet] 81 mg PO DAILY 08/10/19 Calcium Carbonate [Calcium] 600 mg PO DAILY 08/10/19 Ergocalciferol (Vitamin D2) [Vitamin D2] 1,250 mcg PO TH@1000 08/10/19 Escitalopram Oxalate [Lexapro 10 mg Tablet] 20 mg PO QHS 08/10/19 Fenofibrate Nanocrystallized [Fenofibrate] 145 mg PO QHS 08/10/19 Furosemide [Lasix 40 mg Tablet] 40 mg PO QAM 08/10/19 Gabapentin [Neurontin 400 mg Capsule] 400 mg PO Q8 08/10/19 Insulin Detemir [Levemir Insulin 100 units/mL Insulin Pen] 80 unit SUBCUT BID 08/10/19 Iron Ps Complex/B12/Folic Acid [Ferrex 150 Forte Capsule] 1 each PO DAILY 08/10/19 Levothyroxine Sodium [Synthroid] 200 mcg PO DAILY 08/10/19 Metoprolol Succinate [Toprol Xl 50 mg Tab.sr] 50 mg PO DAILY 08/10/19 Oxycodone HCl/Acetaminophen [Percocet 7.5-325 mg Tablet] 1 each PO Q6 08/10/19 History of Present Illiness History of Present Illness: MAKSIM STANLEY is a 69 year old female Patient presents emergency room with complaints of chest pain which started around 9 AM this morning. She denies any prior episodes of chest pain. Chest pain is felt to be mid start all are intermittent. She thought it was reflux so she took some Tums with no relief. She denies any prior history of coronary artery disease or episodes of chest pain. There is no nausea vomiting diaphoresis dizziness or any other pertinent symptoms. She is currently chest pain-free at the time of my exam for text Hospital Course Hospital Course: Patient was admitted on to the telemetry unit and monitored with no significant arrhythmia identified. She had serial cardiac enzymes done which were negative. Patient still complained of chest discomfort but with swallowing. She had no further evidence of angina. She may benefit from an upper GI series or EGD as outpatient however at this time as this cannot be obtained in the hospital currently and with patient being hemodynamically stable it is felt that she can be discharged home for outpatient follow-up and referral as appropriate. Has been told to change her diet to soft diet as tolerated. Physical Exam Vital Signs: Temp Pulse Resp BP Pulse Ox 97.5 F 66 16 122/42 L 100 08/11/19 07:58 08/11/19 07:58 08/11/19 07:58 08/11/19 07:58 08/11/19 07:58 Intake & Output 08/10/19 08/11/19 08/12/19 06:59 06:59 06:59 Output Total 500 Balance -500 Weight 131.6 kg General appearance: PRESENT: no acute distress, morbidly obese, well-developed, well-nourished Head exam: PRESENT: atraumatic, normocephalic Eye exam: PRESENT: conjunctiva pink, EOMI, PERRLA. ABSENT: scleral icterus Ear exam: PRESENT: normal external ear exam Mouth exam: PRESENT: moist, tongue midline Neck exam: ABSENT: carotid bruit, JVD, lymphadenopathy, thyromegaly Respiratory exam: PRESENT: clear to auscultation tavo. ABSENT: rales, rhonchi, wheezes Cardiovascular exam: PRESENT: RRR, +S1, +S2, systolic murmur. ABSENT: diastolic murmur, rubs Pulses: PRESENT: normal dorsalis pedis pul Vascular exam: PRESENT: normal capillary refill GI/Abdominal exam: PRESENT: normal bowel sounds, soft. ABSENT: distended, guarding, mass, organolmegaly, rebound, tenderness Rectal exam: PRESENT: deferred Extremities exam: PRESENT: full ROM. ABSENT: calf tenderness, clubbing, pedal edema Neurological exam: PRESENT: alert, awake, oriented to person, oriented to place, oriented to time, oriented to situation, CN II-XII grossly intact. ABSENT: motor sensory deficit Psychiatric exam: PRESENT: appropriate affect, normal mood. ABSENT: homicidal ideation, suicidal ideation Skin exam: PRESENT: dry, intact, warm. ABSENT: cyanosis, rash Results Laboratory Results: WBC 8.9 10^3/uL (4.0-10.5) 08/11/19 06:45 RBC 4.15 10^6/uL (3.72-5.28) 08/11/19 06:45 Hgb 11.7 g/dL (12.0-15.5) L 08/11/19 06:45 Hct 35.3 % (36.0-47.0) L 08/11/19 06:45 MCV 85 fl (80-97) 08/11/19 06:45 MCH 28.3 pg (27.0-33.4) 08/11/19 06:45 MCHC 33.3 g/dL (32.0-36.0) 08/11/19 06:45 RDW 16.0 % (11.5-14.0) H 08/11/19 06:45 Plt Count 203 10^3/uL (150-450) 08/11/19 06:45 Lymph % (Auto) 13.1 % (13-45) 08/10/19 14:33 Meagher % (Auto) 5.5 % (3-13) 08/10/19 14:33 Eos % (Auto) 8.0 % (0-6) H 08/10/19 14:33 Baso % (Auto) 1.0 % (0-2) 08/10/19 14:33 Absolute Neuts (auto) 8.9 10^3/uL (1.7-8.2) H 08/10/19 14:33 Absolute Lymphs (auto) 1.6 10^3/uL (0.5-4.7) 08/10/19 14:33 Absolute Monos (auto) 0.7 10^3/uL (0.1-1.4) 08/10/19 14:33 Absolute Eos (auto) 1.0 10^3/uL (0.0-0.6) H 08/10/19 14:33 Absolute Basos (auto) 0.1 10^3/uL (0.0-0.2) 08/10/19 14:33 Seg Neutrophils % 72.4 % (42-78) 08/10/19 14:33 Sodium 137.2 mmol/L (137-145) 08/11/19 06:45 Potassium 4.7 mmol/L (3.6-5.0) 08/11/19 06:45 Chloride 100 mmol/L (98-107) 08/11/19 06:45 Carbon Dioxide 29 mmol/L (22-30) 08/11/19 06:45 Anion Gap 8 (5-19) 08/11/19 06:45 BUN 36 mg/dL (7-20) H 08/11/19 06:45 Creatinine 1.92 mg/dL (0.52-1.25) H 08/11/19 06:45 Est GFR ( Amer) 31 (>60) L 08/11/19 06:45 Est GFR (MDRD) Non-Af 26 (>60) L 08/11/19 06:45 Glucose 138 mg/dL (75-110) H 08/11/19 06:45 POC Glucose 139 mg/dL (70-110) H 08/11/19 06:22 Calcium 9.5 mg/dL (8.4-10.2) 08/11/19 06:45 Total Bilirubin 0.5 mg/dL (0.2-1.3) 08/10/19 14:33 Direct Bilirubin 0.1 mg/dL (0.0-0.4) 08/10/19 14:33 Neonat Total Bilirubin Not Reportable 08/10/19 14:33 Neonat Direct Bilirubin Not Reportable 08/10/19 14:33 Neonat Indirect Bili Not Reportable 08/10/19 14:33 AST 37 U/L (14-36) H 08/10/19 14:33 ALT 23 U/L (<35) 08/10/19 14:33 Alkaline Phosphatase 41 U/L (38-126) 08/10/19 14:33 Creatine Kinase 49 U/L (30-135) 08/10/19 14:33 CK-MB (CK-2) 2.87 ng/mL (<4.55) 08/10/19 14:33 Troponin I < 0.012 ng/mL 08/11/19 06:45 Total Protein 7.3 g/dL (6.3-8.2) 08/10/19 14:33 Albumin 4.6 g/dL (3.5-5.0) 08/10/19 14:33 Urine Color YELLOW 08/10/19 14:33 Urine Appearance CLEAR 08/10/19 14:33 Urine pH 6.0 (5.0-9.0) 08/10/19 14:33 Ur Specific Crawford 1.010 08/10/19 14:33 Urine Protein NEGATIVE mg/dL (NEGATIVE) 08/10/19 14:33 Urine Glucose (UA) NEGATIVE mg/dL (NEGATIVE) 08/10/19 14:33 Urine Ketones NEGATIVE mg/dL (NEGATIVE) 08/10/19 14:33 Urine Blood NEGATIVE (NEGATIVE) 08/10/19 14:33 Urine Nitrite (Reflex) NEGATIVE (NEGATIVE) 08/10/19 14:33 Urine Bilirubin NEGATIVE (NEGATIVE) 08/10/19 14:33 Urine Urobilinogen NEGATIVE mg/dL (<2.0) 08/10/19 14:33 Leukocyte Esterase Rfl TRACE (NEGATIVE) H 08/10/19 14:33 Urine RBC (Auto) 0 /HPF 08/10/19 14:33 U Hyaline Cast (Auto) 5 /LPF 08/10/19 14:33 Urine Bacteria (Auto) 1+ /HPF 08/10/19 14:33 Urine WBC (Reflex) 21 /HPF 08/10/19 14:33 Squamous Epi Cells Auto 1 /HPF 08/10/19 14:33 Urine Mucus (Auto) RARE /LPF 08/10/19 14:33 Urine Ascorbic Acid 40 (NEGATIVE) H 08/10/19 14:33 08/10/19 08/10/19 08/10/19 14:33 14:33 17:12 CK-MB (CK-2) 2.87 Troponin I < 0.012 0.014 08/11/19 08/11/19 01:24 06:45 CK-MB (CK-2) Troponin I < 0.012 < 0.012 Impressions: Chest X-Ray 08/10/19 13:58 IMPRESSION: No interval change in the chest. Stroke Is this a Stroke Patient?: No Acute Heart Failure - Is this a Heart Failure Patient?: No
[2019-08-11 11:56] VITALS: BP 104/46
--- NOTE | 2019-08-12 10:39 | EKG REPORT ---
SEVERITY:- BORDERLINE ECG - SINUS RHYTHM BORDERLINE T ABNORMALITIES, ANTERIOR LEADS : Confirmed by: Amarilys Willson 12-Aug-2019 10:39:14
== END 2019-08-11 13:00 | disposition home or self-care (01) ==
LOC: ER 13:17 → EH 18:04 → 4N 19:12
PROVIDERS: ADMIT Internal Medicine; ATTEND Internal Medicine
DX: R07.89 Other chest pain (principal); N17.9 Acute kidney failure, unspecified; E66.01 Morbid (severe) obesity due to excess calories; E78.5 Hyperlipidemia, unspecified; E11.22 Type 2 diabetes mellitus with diabetic chronic kidney disease; I12.9 Hypertensive chronic kidney disease with stage 1 through stage 4 chronic kidney disease, or unspecified chronic kidney disease; N18.3 Chronic kidney disease, stage 3 (moderate); Z68.42 Body mass index [BMI] 45.0-49.9, adult; D72.829 Elevated white blood cell count, unspecified; Z79.4 Long term (current) use of insulin; Z79.899 Other long term (current) drug therapy; Z79.82 Long term (current) use of aspirin; Z82.49 Family history of ischemic heart disease and other diseases of the circulatory system; Z87.891 Personal history of nicotine dependence; Z87.09 Personal history of other diseases of the respiratory system
CPT/HCPCS: 93005; 99285; 36415 ×2; 87086; 82553; 82962 ×2; 82550; 85025; 85027; 87088; 80048; 80053; 81001; 84484 ×2; 87186; 71045; 93010; G0378 ×3; A9270 ×12; J1650; J3490; J7030; J1815

== ENCOUNTER 2020-02-05 09:11 | Emergency (ER) | payer MEDICAID, MEDICARE ==
[2020-02-05 10:19] LABS: ABSOLUTE BASOPHILS # (AUTO) 0.1 10^3/uL (0.0-0.2); ABSOLUTE EOSINOPHILS # (AUTO) 0.8 10^3/uL (0.0-0.6); ABSOLUTE LYMPHOCYTES (AUTO) 1.3 10^3/uL (0.5-4.7); ABSOLUTE MONOCYTES (AUTO) 0.4 10^3/uL (0.1-1.4); ABSOLUTE NEUT (AUTO) 6.6 10^3/uL (1.7-8.2); BASOPHILS % (AUTO) 0.7 % (0-2); EOSINOPHILS % (AUTO) 8.9 % (0-6); HEMATOCRIT 36.9 % (36.0-47.0); LYMPHOCYTES % (AUTO) 14.2 % (13-45); MEAN CORPUSCULAR HEMOGLOBIN 27.6 pg (27.0-33.4); MEAN CORPUSCULAR HGB CONC 32.5 g/dL (32.0-36.0); MEAN CORPUSCULAR VOLUME 85 fl (80-97); MONOCYTES % (AUTO) 4.8 % (3-13); PLATELET COUNT 224 10^3/uL (150-450); RED BLOOD COUNT 4.35 10^6/uL (3.72-5.28); RED CELL DISTRIBUTION WIDTH 15.5 % (11.5-14.0); SEGMENTED NEUTROPHILS % (AUTO) 71.4 % (42-78); TOTAL CELLS COUNTED % (AUTO) 100 %; WHITE BLOOD COUNT 9.2 10^3/uL (4.0-10.5)
[2020-02-05 10:39] LABS: ALBUMIN 4.2 g/dL (3.5-5.0); ALKALINE PHOSPHATASE 53 U/L (38-126); ANION GAP 11 (5-19); APPEARANCE,URINE SLIGHTLY-CLOUDY; ASPARTATE AMINO TRANSFERASE 27 U/L (14-36); BILIRUBIN,DIRECT 0.2 mg/dL (0.0-0.4); BILIRUBIN,TOTAL 0.6 mg/dL (0.2-1.3); BILIRUBIN,URINE NEGATIVE (NEGATIVE); BLOOD UREA NITROGEN 32 mg/dL (7-20); CALCIUM 9.9 mg/dL (8.4-10.2); CARBON DIOXIDE 28 mmol/L (22-30); CHLORIDE 99 mmol/L (98-107); COLOR,URINE YELLOW; GLUCOSE 242 mg/dL (75-110); GLUCOSE, URINE 50 mg/dL (NEGATIVE); KETONES,URINE NEGATIVE (NEGATIVE); POTASSIUM 5.9 mmol/L (3.6-5.0); PROTEIN,URINE NEGATIVE (NEGATIVE); TOTAL PROTEIN 6.8 g/dL (6.3-8.2); URINE SPECIFIC GRAVITY 1.015; UROBILINOGEN,URINE NEGATIVE mg/dL (<2.0)
[2020-02-05] MEDS ORDERED: SODIUM POLYSTYRENE SULFONATE 15 GM/60 ML PO ONE (12:44)
[2020-02-05] MEDS ORDERED: NORMAL SALINE 1000 ML 1,000 ML IV ONE ×2 (12:44→16:16)
[2020-02-05] MEDS ORDERED: CEFTRIAXONE 1 GM/D5W RTU 1 GM/50 ML RTUPB IV ONE (13:00)
--- NOTE | 2020-02-05 13:23 | RADIOLOGY REPORT (SQ) ---
EXAM DESCRIPTION: CT ABD/PELVIS NO ORAL OR IV IMAGES COMPLETED DATE/TIME: 02/05/2020 1:05 pm REASON FOR STUDY: right flank pain COMPARISON: 2016 TECHNIQUE: CT scan of the abdomen and pelvis performed without intravenous or oral contrast. Images reviewed with lung, soft tissue, and bone windows. Reconstructed coronal and sagittal MPR images revi ewed. All images stored on PACS. All CT scanners at this facility use dose modulation, iterative reconstruction, and/or weight based d osing when appropriate to reduce radiation dose to as low as reasonably achievable (ALARA). [facility]: Dose Right [facility]: CareDose [facility]: Dose Right [facility]: Teradose 4D [facility]: Smart Technologies RADIATION DOSE: CT Rad equipment meets quality standard of care and radiation dose reduction techniq ues were employed. CTDIvol: 19.2 mGy. DLP: 1070 mGy-cm.mGy. LIMITATIONS: None. FINDINGS: LOWER CHEST: No significant findings. No nodules or infiltrates. NON-CONTRASTED LIVER, SPLEEN, ADRENALS: Liver and spleen are normal. There is a stable 16 mm left ad renal nodule and a stable 2 cm right adrenal nodule. PANCREAS: No masses. No peripancreatic inflammatory changes. GALLBLADDER: No identified stones by CT criteria. No inflammatory changes to suggest cholecystitis. RIGHT KIDNEY AND URETER: No suspicious masses. Assessment limited by lack of IV contrast. No signif icant calcifications. No hydronephrosis or hydroureter. LEFT KIDNEY AND URETER: No suspicious masses. Assessment limited by lack of IV contrast. No signifi cant calcifications. No hydronephrosis or hydroureter. AORTA AND RETROPERITONEUM: No aneurysm. No retroperitoneal masses or adenopathy. BOWEL AND PERITONEAL CAVITY: Sigmoid diverticulosis with no associated acute inflammation. No obviou s bowel mass. APPENDIX: Not identified. PELVIS, BLADDER, AND ABDOMINAL WALL:Densely calcified uterine fibroid. Urinary bladder is normal. BONES: No significant findings. OTHER: No other significant finding. IMPRESSION: Stable adrenal nodules. Diverticulosis coli. No acute finding in the abdomen or pelvis . COMMENT: Quality ID # [id number]: Final reports with documentation of one or more dose reduction techniques (e.g., Automated exposure control, adjustment of the mA and/or kV according to patient size, use of iterative reconstruction technique) TECHNICAL DOCUMENTATION: JOB ID: [id number] happn- All Rights Reserved Reading location - IP/workstation name: [email or web address]
--- NOTE | 2020-02-05 16:24 | ER Document Report ---
ED General - General Chief Complaint: Shortness Of Breath Stated Complaint: DIFFICULTY BREATHING Time Seen by Provider: 02/05/20 12:21 Primary Care Provider: GIAN BENITEZ MD [Primary Care Provider] - Follow up tomorrow (for potassium recheck) Mode of Arrival: Ambulatory Information source: Patient TRAVEL OUTSIDE OF THE [place] IN LAST 30 DAYS: No - HPI Notes: Patient complains of right flank pain. States has about 2 days. Is constant. Is a dull ache. Is worse with movement and better with rest. It does seem to radiate around to the right mid back as well as under her right breast. No cough cold or congestion. Some mild shortness of breath. No vomiting or diarrhea. No pain with urination. - Related Data Allergies/Adverse Reactions: sulfamethoxazole [From Septra DS] Allergy (Unknown, Verified 02/05/20 09:36) trimethoprim [From Septra DS] Allergy (Unknown, Verified 02/05/20 09:36) codeine [Codeine] Allergy (Verified 02/05/20 09:36) Anxiety latex [Latex] Allergy (Verified 02/05/20 09:36) Past Medical History - General Information source: Patient - Social History Smoking Status: Former Smoker Chew tobacco use (# tins/day): No Drug Abuse: None Family History: CAD, DM, Hyperlipidemia, Hypertension Patient has homicidal ideation: No - Past Medical History Cardiac Medical History: Reports: Hx Hypercholesterolemia, Hx Hypertension, Hx Heart Murmur Denies: Hx Coronary Artery Disease, Hx Heart Attack Pulmonary Medical History: Reports: Hx Asthma, Hx Bronchitis, Hx COPD, Hx Pneumonia Denies: Hx Respiratory Failure, Hx Sleep Apnea, Hx Tuberculosis Neurological Medical History: Denies: Hx Cerebrovascular Accident, Hx Seizures Endocrine Medical History: Reports: Hx Diabetes Mellitus Type 2 Renal/ Medical History: Denies: Hx Peritoneal Dialysis GI Medical History: Denies: Hx Pancreatitis Musculoskeletal Medical History: Reports Hx Arthritis, Denies Hx Systemic Lupus Erythematosus Psychiatric Medical History: Reports: Hx Depression Past Surgical History: Reports: Hx Adenoidectomy, Hx Gynecologic Surgery - D&Cx2, Hx Orthopedic Surgery - bilat carpal tunnel, Hx Tonsillectomy - Immunizations Hx Diphtheria, Pertussis, Tetanus Vaccination: Yes Hx Pneumococcal Vaccination: 12/26/14 Review of Systems - Review of Systems Constitutional: denies: Chills, Fever Cardiovascular: Chest pain. denies: Palpitations Respiratory: Short of breath. denies: Cough -: Yes All other systems reviewed and negative Physical Exam - Vital signs Vitals: Temp Pulse Resp BP Pulse Ox 97.9 F 87 22 H 149/98 H 100 02/05/20 09:15 02/05/20 09:15 02/05/20 09:15 02/05/20 09:15 02/05/20 09:15 Interpretation: Normal - General General appearance: Appears well, Alert - HEENT Head: Normocephalic, Atraumatic Eyes: Normal Pupils: PERRL - Respiratory Respiratory status: No respiratory distress Chest status: Nontender Breath sounds: Normal Chest palpation: Normal - Cardiovascular Rhythm: Regular Heart sounds: Normal auscultation Murmur: No - Abdominal Inspection: Normal Distension: No distension Bowel sounds: Normal Tenderness: Nontender Organomegaly: No organomegaly - Back Back: Normal, Tender - Right CVA tenderness - Extremities General upper extremity: Normal inspection, Nontender, Normal color, Normal ROM, Normal temperature General lower extremity: Normal inspection, Nontender, Normal color, Normal ROM, Normal temperature, Normal weight bearing. No: Freddie's sign - Neurological Neuro grossly intact: Yes Cognition: Normal Orientation: AAOx4 [place] Coma Scale Eye Opening: Spontaneous Kiarra Coma Scale Verbal: Oriented [place] Coma Scale Motor: Obeys Commands Kiarra Coma Scale Total: 15 Speech: Normal Motor strength normal: LUE, RUE, LLE, RLE Sensory: Normal - Psychological Associated symptoms: Normal affect, Normal mood - Skin Skin Temperature: Warm Skin Moisture: Dry Skin Color: Normal Course - Re-evaluation Re-evalutation: 02/05/20 16:21 Patient presents with right flank pain. She is got pyelonephritis by clinical picture. I do not see any evidence of any other significant pathology. Patient does have some mild renal insufficiency with some mildly elevated potassium. She has been given Kayexalate. She does not have significant interventricular conduction delay on her EKG nor does patient have any peaked T waves. Patient also has received fluids which should help decrease her potassium. I told the patient I would like to give her 1 more liter of fluid and recheck her potassium however patient declines and says she wants to leave right now because she cannot drive after dark. She states she will return in the morning to have us recheck her potassium I felt that this was a reasonable compromise. Patient has been given a dose of antibiotics here that will last her 24 hours. I will send her home with antibiotics and I will have the patient return tomorrow for her potassium to be rechecked. - Vital Signs Vital signs: Temp Pulse Resp BP Pulse Ox 97.9 F 87 22 H 149/98 H 100 02/05/20 09:15 02/05/20 09:15 02/05/20 09:15 02/05/20 09:15 02/05/20 09:15 - Laboratory Result Diagrams: 02/05/20 09:55 02/05/20 09:55 Laboratory results interpreted by me: 02/05/20 02/05/20 02/05/20 09:55 09:55 09:55 RDW 15.5 H Eos % (Auto) 8.9 H Absolute Eos (auto) 0.8 H Potassium 5.9 H BUN 32 H Creatinine 1.68 H Est GFR ( Amer) 36 L Est GFR (MDRD) Non-Af 30 L Glucose 242 H Urine Glucose (UA) 50 H Urine Nitrite (Reflex) POSITIVE H Leukocyte Esterase Rfl LARGE H Urine Ascorbic Acid 40 H - Diagnostic Test Radiology reviewed: Image reviewed, Reports reviewed - EKG Interpretation by Me EKG shows normal: Sinus rhythm Rate: Normal - 87 Rhythm: NSR [place]/QRS: No: Right axis deviation, Left axis deviation Discharge - Discharge Clinical Impression: Hyperkalemia, Renal insufficiency, Pyelonephritis Condition: Stable Disposition: HOME, SELF-CARE Instructions: Antibiotic Therapy ([facility]), Oral Narcotic Medication ([facility]), Pyelonephritis ([facility]), Rocephin ([facility]) Additional Instructions: Please return first thing tomorrow morning to have your potassium rechecked either here in the emergency department or at your family physician's office. Prescriptions: Cefdinir 300 mg PO BID 7 Days #14 capsule Referrals: GIAN BENITEZ MD [Primary Care Provider] - Follow up tomorrow (for potassium recheck)
[2020-02-05 16:46] VITALS: BP 123/67
--- NOTE | 2020-02-05 17:47 | EKG REPORT ---
SEVERITY:- BORDERLINE ECG - SINUS ARRHYTHMIA, RATE 65-98 BORDERLINE T ABNORMALITIES, ANTERIOR LEADS : Confirmed by: Amarilys Willson 05-Feb-2020 17:46:49
== END 2020-02-05 16:46 | disposition home or self-care (01) ==
LOC: ER 09:11
DX: N12 Tubulo-interstitial nephritis, not specified as acute or chronic (principal); E87.5 Hyperkalemia; N28.9 Disorder of kidney and ureter, unspecified; R06.02 Shortness of breath; R06.00 Dyspnea, unspecified; E78.00 Pure hypercholesterolemia, unspecified; I10 Essential (primary) hypertension; E11.9 Type 2 diabetes mellitus without complications; Z88.6 Allergy status to analgesic agent; Z91.040 Latex allergy status
CPT/HCPCS: 93005; 99285; 96365; 96366; 36415; 87086; 85025; 87088; 80053; 81001; 74176; 93010; A9270; J7030; J0696; 87186

== ENCOUNTER 2020-02-06 09:11 | Emergency (ER) | payer MEDICARE ==
[2020-02-06 10:40] LABS: ABSOLUTE BASOPHILS # (AUTO) 0.1 10^3/uL (0.0-0.2); ABSOLUTE EOSINOPHILS # (AUTO) 1.1 10^3/uL (0.0-0.6); ABSOLUTE LYMPHOCYTES (AUTO) 1.4 10^3/uL (0.5-4.7); ABSOLUTE MONOCYTES (AUTO) 0.6 10^3/uL (0.1-1.4); ABSOLUTE NEUT (AUTO) 6.6 10^3/uL (1.7-8.2); BASOPHILS % (AUTO) 0.7 % (0-2); HEMATOCRIT 35.5 % (36.0-47.0); HEMOGLOBIN 11.6 g/dL (12.0-15.5); MEAN CORPUSCULAR HEMOGLOBIN 27.8 pg (27.0-33.4); MEAN CORPUSCULAR HGB CONC 32.8 g/dL (32.0-36.0); MEAN CORPUSCULAR VOLUME 85 fl (80-97); MONOCYTES % (AUTO) 5.7 % (3-13); PLATELET COUNT 212 10^3/uL (150-450); RED BLOOD COUNT 4.18 10^6/uL (3.72-5.28); RED CELL DISTRIBUTION WIDTH 15.6 % (11.5-14.0); SEGMENTED NEUTROPHILS % (AUTO) 68.6 % (42-78); TOTAL CELLS COUNTED % (AUTO) 100 %; WHITE BLOOD COUNT 9.7 10^3/uL (4.0-10.5)
[2020-02-06 11:00] LABS: ALBUMIN 4.1 g/dL (3.5-5.0); ALKALINE PHOSPHATASE 49 U/L (38-126); ANION GAP 11 (5-19); ASPARTATE AMINO TRANSFERASE 25 U/L (14-36); BILIRUBIN,DIRECT 0.2 mg/dL (0.0-0.4); BILIRUBIN,TOTAL 0.6 mg/dL (0.2-1.3); BLOOD UREA NITROGEN 28 mg/dL (7-20); CALCIUM 9.6 mg/dL (8.4-10.2); CARBON DIOXIDE 27 mmol/L (22-30); CHLORIDE 101 mmol/L (98-107); GLUCOSE 273 mg/dL (75-110); POTASSIUM 5.5 mmol/L (3.6-5.0); TOTAL PROTEIN 6.7 g/dL (6.3-8.2)
[2020-02-06] MEDS ORDERED: NORMAL SALINE 1000 ML 1,000 ML IV ONE (11:29)
[2020-02-06] MEDS ORDERED: SODIUM POLYSTYRENE SULFONATE 15 GM/60 ML PO ONE (11:29)
--- NOTE | 2020-02-06 12:55 | ER Document Report ---
ED General - General Chief Complaint: Abnormal Lab Results Stated Complaint: RECHECK Time Seen by Provider: 02/06/20 11:29 Primary Care Provider: GIAN BENITEZ MD [Primary Care Provider] - Follow up as needed Mode of Arrival: Ambulatory Information source: Patient TRAVEL OUTSIDE OF THE [place] IN LAST 30 DAYS: No - HPI Notes: Patient presents for recheck of laboratories. Patient was here yesterday and diagnosed with pyelonephritis. She was told to return to have her potassium rechecked as it was high yesterday. She was treated with 1 L of fluid and Kayexalate yesterday but she asked if she can be discharged so she did not have to drive after dark. She does return today for recheck of those values. She states she feels much better than yesterday. - Related Data Allergies/Adverse Reactions: sulfamethoxazole [From Septra DS] Allergy (Unknown, Verified 02/06/20 09:50) trimethoprim [From Septra DS] Allergy (Unknown, Verified 02/06/20 09:50) codeine [Codeine] Allergy (Verified 02/06/20 09:50) Anxiety latex [Latex] Allergy (Verified 02/06/20 09:50) Home Medications: cefdinir. citalopram. fluticasone. gabapentin. levemir. meloxicam Past Medical History - General Information source: Patient - Social History Smoking Status: Former Smoker Chew tobacco use (# tins/day): No Frequency of alcohol use: None Drug Abuse: None Family History: CAD, DM, Hyperlipidemia, Hypertension Patient has homicidal ideation: No - Past Medical History Cardiac Medical History: Reports: Hx Hypercholesterolemia, Hx Hypertension, Hx Heart Murmur Denies: Hx Coronary Artery Disease, Hx Heart Attack Pulmonary Medical History: Reports: Hx Asthma, Hx Bronchitis, Hx COPD, Hx Pneumonia Denies: Hx Respiratory Failure, Hx Sleep Apnea, Hx Tuberculosis Neurological Medical History: Denies: Hx Cerebrovascular Accident, Hx Seizures Endocrine Medical History: Reports: Hx Diabetes Mellitus Type 2 Renal/ Medical History: Denies: Hx Peritoneal Dialysis GI Medical History: Denies: Hx Pancreatitis Musculoskeletal Medical History: Reports Hx Arthritis, Denies Hx Systemic Lupus Erythematosus Psychiatric Medical History: Reports: Hx Depression Past Surgical History: Reports: Hx Adenoidectomy, Hx Gynecologic Surgery - D&Cx2, Hx Orthopedic Surgery - bilat carpal tunnel, Hx Tonsillectomy - Immunizations Hx Diphtheria, Pertussis, Tetanus Vaccination: Yes Hx Pneumococcal Vaccination: 12/26/14 Review of Systems - Review of Systems Constitutional: denies: Chills, Fever Cardiovascular: denies: Chest pain, Palpitations Respiratory: denies: Cough, Short of breath -: Yes All other systems reviewed and negative Physical Exam - Vital signs Vitals: Temp Pulse Resp BP Pulse Ox 98.8 F 95 18 130/80 H 99 02/06/20 09:39 02/06/20 09:39 02/06/20 09:39 02/06/20 09:39 02/06/20 09:39 Interpretation: Normal - General General appearance: Appears well, Alert - HEENT Head: Normocephalic, Atraumatic Eyes: Normal Pupils: PERRL - Respiratory Respiratory status: No respiratory distress Chest status: Nontender Breath sounds: Normal Chest palpation: Normal - Cardiovascular Rhythm: Regular Heart sounds: Normal auscultation Murmur: No - Abdominal Inspection: Normal Distension: No distension Bowel sounds: Normal Tenderness: Nontender Organomegaly: No organomegaly - Back Back: Normal, Nontender - Extremities General upper extremity: Normal inspection, Nontender, Normal color, Normal ROM, Normal temperature General lower extremity: Normal inspection, Nontender, Normal color, Normal ROM, Normal temperature, Normal weight bearing. No: Freddie's sign - Neurological Neuro grossly intact: Yes Cognition: Normal Orientation: AAOx4 Kiarra Coma Scale Eye Opening: Spontaneous Sanders Coma Scale Verbal: Oriented Sanders Coma Scale Motor: Obeys Commands Sanders Coma Scale Total: 15 Speech: Normal Motor strength normal: LUE, RUE, LLE, RLE Sensory: Normal - Psychological Associated symptoms: Normal affect, Normal mood - Skin Skin Temperature: Warm Skin Moisture: Dry Skin Color: Normal Course - Re-evaluation Re-evalutation: 02/06/20 12:51 Potassium and creatinine have both come down some. I am going to discharge the patient home with instructions drink fluids that she declines an IV. I will give the patient 1 more dose of Kayexalate and send her home with Kayexalate for several days. I am also can have her follow-up with her family physician. - Vital Signs Vital signs: Temp Pulse Resp BP Pulse Ox 98.8 F 95 18 130/80 H 99 02/06/20 09:50 02/06/20 09:39 02/06/20 09:39 02/06/20 09:39 02/06/20 09:39 - Laboratory Result Diagrams: 02/06/20 10:17 02/06/20 10:17 Laboratory results interpreted by me: 02/06/20 02/06/20 10:17 10:17 Hgb 11.6 L Hct 35.5 L RDW 15.6 H Eos % (Auto) 11.0 H Absolute Eos (auto) 1.1 H Potassium 5.5 H BUN 28 H Creatinine 1.50 H Est GFR ( Amer) 41 L Est GFR (MDRD) Non-Af 34 L Glucose 273 H Discharge - Discharge Clinical Impression: Hyperkalemia Condition: Stable Disposition: HOME, SELF-CARE Instructions: Potassium ([facility]) Additional Instructions: Please drink lots of water Avoid foods high in potassium Please follow up with Dr. Bneitez in next one to two days Prescriptions: Sodium Polystyrene Sulfonate [Kayexalate 15 Gm/60 Ml Susp 60 Ml] 15 gm PO DAILY 5 Days #1 bottle Forms: Return to Work Referrals: GIAN BENITEZ MD [Primary Care Provider] - Follow up tomorrow
[2020-02-06 13:09] VITALS: BP 144/68
== END 2020-02-06 13:09 | disposition home or self-care (01) ==
LOC: ER 09:11
DX: E87.5 Hyperkalemia (principal); I10 Essential (primary) hypertension; J44.9 Chronic obstructive pulmonary disease, unspecified; F32.9 Major depressive disorder, single episode, unspecified; Z79.899 Other long term (current) drug therapy; Z79.52 Long term (current) use of systemic steroids; Z79.4 Long term (current) use of insulin; Z79.1 Long term (current) use of non-steroidal anti-inflammatories (NSAID); Z79.2 Long term (current) use of antibiotics; Z87.891 Personal history of nicotine dependence; Z88.1 Allergy status to other antibiotic agents; Z88.6 Allergy status to analgesic agent; Z88.5 Allergy status to narcotic agent; Z91.040 Latex allergy status
CPT/HCPCS: 99283; 36415; 85025; 80053; A9270

== ENCOUNTER → 2020-04-16 | Outpatient (CLI) | payer MEDICAID, MEDICARE ==
[2020-04-16 12:39] LABS: ABSOLUTE BASOPHILS # (AUTO) 0.1 10^3/uL (0.0-0.2); ABSOLUTE EOSINOPHILS # (AUTO) 0.7 10^3/uL (0.0-0.6); ABSOLUTE LYMPHOCYTES (AUTO) 1.4 10^3/uL (0.5-4.7); ABSOLUTE MONOCYTES (AUTO) 0.6 10^3/uL (0.1-1.4); ABSOLUTE NEUT (AUTO) 8.8 10^3/uL (1.7-8.2); BASOPHILS % (AUTO) 0.7 % (0-2); EOSINOPHILS % (AUTO) 5.9 % (0-6); HEMATOCRIT 37.4 % (36.0-47.0); HEMOGLOBIN 12.2 g/dL (12.0-15.5); LYMPHOCYTES % (AUTO) 12.4 % (13-45); MEAN CORPUSCULAR HEMOGLOBIN 27.3 pg (27.0-33.4); MEAN CORPUSCULAR HGB CONC 32.6 g/dL (32.0-36.0); MEAN CORPUSCULAR VOLUME 84 fl (80-97); MONOCYTES % (AUTO) 5.2 % (3-13); PLATELET COUNT 261 10^3/uL (150-450); RED BLOOD COUNT 4.48 10^6/uL (3.72-5.28); RED CELL DISTRIBUTION WIDTH 15.2 % (11.5-14.0); SEGMENTED NEUTROPHILS % (AUTO) 75.8 % (42-78); TOTAL CELLS COUNTED % (AUTO) 100 %; WHITE BLOOD COUNT 11.6 10^3/uL (4.0-10.5)
--- NOTE | 2020-04-16 12:55 | RADIOLOGY REPORT (SQ) ---
EXAM DESCRIPTION: FOOT LEFT COMPLETE IMAGES COMPLETED DATE/TIME: 04/16/2020 12:07 pm REASON FOR STUDY: NON PRESSURE CHRONIC ULCER OF OTHER PARTS OF LEFT FOOT W./ FAT LAYER EXPOSED L97.5 22 NON-PRS CHRONIC ULCER OTH PRT LEFT FOOT W FAT LAYER E11.621 TYPE 2 DIABETES MELLITUS WITH FOOT ULCER COMPARISON: None. NUMBER OF VIEWS: Three views. TECHNIQUE: AP, lateral and oblique radiographic images acquired of the left foot. LIMITATIONS: None. FINDINGS: MINERALIZATION: Normal. BONES: No evidence of osteomyelitis. No acute fracture. Plantar calcaneal spur. JOINTS: No effusions. SOFT TISSUES: No soft tissue swelling. No foreign body. OTHER: No other significant finding. IMPRESSION: No osteomyelitis. Plantar calcaneal spur. TECHNICAL DOCUMENTATION: JOB ID: [id number] [employer]- All Rights Reserved Reading location - IP/workstation name: [email or web address]
[2020-04-16 13:05] LABS: ALBUMIN 4.3 g/dL (3.5-5.0); ALKALINE PHOSPHATASE 62 U/L (38-126); ANION GAP 8 (5-19); ASPARTATE AMINO TRANSFERASE 27 U/L (14-36); BILIRUBIN,DIRECT 0.3 mg/dL (0.0-0.4); BILIRUBIN,TOTAL 0.5 mg/dL (0.2-1.3); BLOOD UREA NITROGEN 53 mg/dL (7-20); CALCIUM 10.1 mg/dL (8.4-10.2); CARBON DIOXIDE 29 mmol/L (22-30); CHLORIDE 100 mmol/L (98-107); GLUCOSE 284 mg/dL (75-110); POTASSIUM 5.4 mmol/L (3.6-5.0); TOTAL PROTEIN 7.2 g/dL (6.3-8.2)
[2020-04-16 13:08] LABS: C-REACTIVE PROTEIN < 5.0 mg/L (<10.0)
[2020-04-16 13:19] LABS: ERYTHROCYTE SEDIMENTATION RATE 27 mm/hr (0-30)
--- NOTE | 2020-04-16 15:06 | RADIOLOGY REPORT (SQ) ---
EXAM DESCRIPTION: ARTERIAL LOWER EXTREM BILAT; PHYSIO ARTERIAL LTD IMAGES COMPLETED DATE/TIME: 04/16/2020 11:48 am REASON FOR STUDY: LT FOOT ULCER L97.522 NON-PRS CHRONIC ULCER OTH PRT LEFT FOOT W FAT LAYER COMPARISON: 09/22/2016. TECHNIQUE: Dynamic and static garcia scale and color images acquired of the lower extremity arteries. Additional selected spectral images recorded. ABIs recorded. LIMITATIONS: None. FINDINGS: RIGHT LEG: ABIS: Normal, over 1.0. INFLOW ARTERIES: Normal, no obstruction evident. FEMORAL ARTERIES:Multiphasic waveforms. Normal, no velocity elevation to suggest focal stenosis. Norm al color Doppler evaluation. No aneurysm. POPLITEAL ARTERY:Multiphasic waveforms. Normal, no velocity elevation to suggest focal stenosis. Norm al color Doppler evaluation. No aneurysm. PATENT TIBIOPERONEAL TRUNK AND 3 VESSEL RUNOFF: Yes, normal vessels. TBI: Not performed. OTHER: Diffuse atherosclerosis. LEFT LEG: ABIS: Normal, over 1.0. INFLOW ARTERIES: Normal, no obstruction evident. FEMORAL ARTERIES:Multiphasic waveforms. Normal, no velocity elevation to suggest focal stenosis. Norm al color Doppler evaluation. No aneurysm. POPLITEAL ARTERY:Multiphasic waveforms. Normal, no velocity elevation to suggest focal stenosis. Norm al color Doppler evaluation. No aneurysm. PATENT TIBIOPERONEAL TRUNK AND 3 VESSEL RUNOFF: Yes, normal vessels. TBI: Not performed. OTHER: Diffuse atherosclerosis. IMPRESSION: NORMAL BILATERAL LOWER EXTREMITY ARTERIAL DOPPLER WITH ABIs. COMMENT: [facility] NORMAL: Greater than 1.0 MINIMAL DISEASE: 0.9 to 1.0 CLAUDICATION: 0.5 to 0.9 SEVERE ARTERIAL DISEASE: Less than 0.5 [facility] NORMAL: Greater than 1.0 (1.2 If Heavy Calcifications) NORMAL TO MILD ISCHEMIA: 0.8 to 1.0 MODERATE ISCHEMIA: 0.4 to 0.8 SEVERE ISCHEMIA: Less than 0.4 TECHNICAL DOCUMENTATION: JOB ID: [id number] [employer]- All Rights Reserved Reading location - IP/workstation name: [email or web address]
--- NOTE | 2020-04-16 15:06 | RADIOLOGY REPORT (SQ) ---
EXAM DESCRIPTION: ARTERIAL LOWER EXTREM BILAT; PHYSIO ARTERIAL LTD IMAGES COMPLETED DATE/TIME: 04/16/2020 11:48 am REASON FOR STUDY: LT FOOT ULCER L97.522 NON-PRS CHRONIC ULCER OTH PRT LEFT FOOT W FAT LAYER COMPARISON: 09/22/2016. TECHNIQUE: Dynamic and static garcia scale and color images acquired of the lower extremity arteries. Additional selected spectral images recorded. ABIs recorded. LIMITATIONS: None. FINDINGS: RIGHT LEG: ABIS: Normal, over 1.0. INFLOW ARTERIES: Normal, no obstruction evident. FEMORAL ARTERIES:Multiphasic waveforms. Normal, no velocity elevation to suggest focal stenosis. Norm al color Doppler evaluation. No aneurysm. POPLITEAL ARTERY:Multiphasic waveforms. Normal, no velocity elevation to suggest focal stenosis. Norm al color Doppler evaluation. No aneurysm. PATENT TIBIOPERONEAL TRUNK AND 3 VESSEL RUNOFF: Yes, normal vessels. TBI: Not performed. OTHER: Diffuse atherosclerosis. LEFT LEG: ABIS: Normal, over 1.0. INFLOW ARTERIES: Normal, no obstruction evident. FEMORAL ARTERIES:Multiphasic waveforms. Normal, no velocity elevation to suggest focal stenosis. Norm al color Doppler evaluation. No aneurysm. POPLITEAL ARTERY:Multiphasic waveforms. Normal, no velocity elevation to suggest focal stenosis. Norm al color Doppler evaluation. No aneurysm. PATENT TIBIOPERONEAL TRUNK AND 3 VESSEL RUNOFF: Yes, normal vessels. TBI: Not performed. OTHER: Diffuse atherosclerosis. IMPRESSION: NORMAL BILATERAL LOWER EXTREMITY ARTERIAL DOPPLER WITH ABIs. COMMENT: [facility] NORMAL: Greater than 1.0 MINIMAL DISEASE: 0.9 to 1.0 CLAUDICATION: 0.5 to 0.9 SEVERE ARTERIAL DISEASE: Less than 0.5 [facility] NORMAL: Greater than 1.0 (1.2 If Heavy Calcifications) NORMAL TO MILD ISCHEMIA: 0.8 to 1.0 MODERATE ISCHEMIA: 0.4 to 0.8 SEVERE ISCHEMIA: Less than 0.4 TECHNICAL DOCUMENTATION: JOB ID: [id number] [employer]- All Rights Reserved Reading location - IP/workstation name: [email or web address]
== END ==
LOC: SP 10:07
PROVIDERS: ATTEND Nurse Practitioner Family
DX: E11.621 Type 2 diabetes mellitus with foot ulcer (principal); L97.522 Non-pressure chronic ulcer of other part of left foot with fat layer exposed
CPT/HCPCS: 36415; 80053; 83036; 85025; 85652; 86140; 93922; 93925